=== PATIENT | male | born 1950 | race Caucasian/White ===

== ENCOUNTER 2019-03-23 15:29 | Outpatient (CLI) | payer MEDICARE, SELFPAY ==
--- NOTE | 2019-03-23 16:00 | MR_ITS ---
WS: [id number] MRI RIGHT SHOULDER NONCONTRAST TECHNIQUE: Sagittal T2, coronal T1, T2 and proton density imaging. Axial gradient PDE imaging. CLINICAL INFORMATION: pain COMPARISON: MRI 6 FINDINGS: Moderate degenerative arthritis at the AC joint with mild downsloping of the acromion. Edema involvin g the AC joint. Partial insertional tear at the distal supraspinatus. No tendon retraction. Infraspin atus is intact. Normal teres minor. Tiny intrasubstance tear involving the subscapularis distally. Medial subluxation of the biceps tendo n in the bicipital groove. Diffuse edema involving the rotator interval with tendinopathy involving t he long head of the biceps tendon. Intra-articular biceps tendon appears intact. Slight irregularity with small SLAP tear extending to the biceps labral anchor which appears intact. MR/MR shoulder RT wo con* [id number] IMPRESSION: 1. Small partial intrasubstance tear involving the distal supraspinatus extend ing to the insertion. No tendon retraction. This is similar in appearance to 20 10. 2. Normal infraspinatus and teres minor. 3. Tiny intrasubstance tear involving the subscapularis distally. Subcoracoid bursa effusion. 4. Medial subluxation of the biceps tendon in the bicipital groove with T2 sig nal abnormality in the rotator interval. Tendinopathy involving the intra-artic ular portion of the biceps tendon which appears intact. 5. Suggestion of a small SLAP tear anterior superior glenoid labrum extending to the biceps labral anchor which appears intact.
== END 2019-03-23 15:30 | disposition home or self-care (01) ==
LOC: RADSHAW 15:30
PROVIDERS: Family Provider Nurse Practitioner Family; PCP Nurse Practitioner Family; Visit Provider Nurse Practitioner Family
DX: S43.081A Other subluxation of right shoulder joint, initial encounter (principal); M75.111 Incomplete rotator cuff tear or rupture of right shoulder, not specified as traumatic; M25.511 Pain in right shoulder; X58.XXXA Exposure to other specified factors, initial encounter
CPT/HCPCS: 73221

== ENCOUNTER → 2019-04-07 14:09 | Outpatient (BNVA) | payer MEDICARE, SELFPAY | PROVIDERS: Family Provider Nurse Practitioner Family; PCP Nurse Practitioner Family; Visit Provider Anesthesiology | DX: G89.29 Other chronic pain (principal); M47.812 Spondylosis without myelopathy or radiculopathy, cervical region; M50.30 Other cervical disc degeneration, unspecified cervical region; M47.816 Spondylosis without myelopathy or radiculopathy, lumbar region; M47.817 Spondylosis without myelopathy or radiculopathy, lumbosacral region; M51.36 Other intervertebral disc degeneration, lumbar region; M17.11 Unilateral primary osteoarthritis, right knee; M25.511 Pain in right shoulder; M25.512 Pain in left shoulder; F17.210 Nicotine dependence, cigarettes, uncomplicated; Z79.891 Long term (current) use of opiate analgesic | CPT/HCPCS: 99214 ==

== ENCOUNTER → 2019-04-14 10:05 | Outpatient (BNVA) | payer MEDICARE, SELFPAY | PROVIDERS: Family Provider Nurse Practitioner Family; Referring Provider Nurse Practitioner Family; Visit Provider Specialist | DX: M19.011 Primary osteoarthritis, right shoulder (principal); M25.411 Effusion, right shoulder | CPT/HCPCS: 73030 ==

== ENCOUNTER 2019-04-21 06:00 | Outpatient (RCR) | payer MEDICARE, SELFPAY | END 2019-05-08 23:59 | disposition home or self-care (01) | LOC: TPT 06:00 | PROVIDERS: Referring Provider Specialist; Visit Provider Specialist | DX: M19.011 Primary osteoarthritis, right shoulder (principal) | CPT/HCPCS: 97032; 97110; 97140; 97161; 97164; 97530 ==

== ENCOUNTER → 2019-06-03 10:15 | Outpatient (BNVA) | payer MEDICARE, SELFPAY | PROVIDERS: Visit Provider Nurse Practitioner | DX: Z76.89 Persons encountering health services in other specified circumstances (principal) | CPT/HCPCS: 99213 ==

== ENCOUNTER → 2019-07-05 08:33 | Outpatient (BNVA) | payer MEDICARE, SELFPAY | PROVIDERS: Visit Provider Nurse Practitioner Family | DX: I10 Essential (primary) hypertension (principal); E11.9 Type 2 diabetes mellitus without complications; Z79.4 Long term (current) use of insulin; M51.36 Other intervertebral disc degeneration, lumbar region; R53.83 Other fatigue; E55.9 Vitamin D deficiency, unspecified | CPT/HCPCS: 80053; 80061; 82044; 82306; 82607; 83036; 84443; 85025 ==

== ENCOUNTER → 2019-09-23 13:25 | Outpatient (BNVA) | payer MEDICARE, SELFPAY | PROVIDERS: Visit Provider Anesthesiology | DX: G89.29 Other chronic pain (principal); M47.816 Spondylosis without myelopathy or radiculopathy, lumbar region; M51.36 Other intervertebral disc degeneration, lumbar region; M47.817 Spondylosis without myelopathy or radiculopathy, lumbosacral region; M17.11 Unilateral primary osteoarthritis, right knee; M50.30 Other cervical disc degeneration, unspecified cervical region; M47.812 Spondylosis without myelopathy or radiculopathy, cervical region; F17.220 Nicotine dependence, chewing tobacco, uncomplicated; Z79.891 Long term (current) use of opiate analgesic; Z71.6 Tobacco abuse counseling | CPT/HCPCS: 99214 ==

== ENCOUNTER → 2019-12-01 10:19 | Outpatient (BNVA) | payer MEDICARE, SELFPAY | PROVIDERS: PCP Nurse Practitioner Family; Visit Provider Nurse Practitioner | DX: M47.816 Spondylosis without myelopathy or radiculopathy, lumbar region (principal); M51.36 Other intervertebral disc degeneration, lumbar region; M47.812 Spondylosis without myelopathy or radiculopathy, cervical region; M50.30 Other cervical disc degeneration, unspecified cervical region; M17.11 Unilateral primary osteoarthritis, right knee; F17.220 Nicotine dependence, chewing tobacco, uncomplicated; Z79.891 Long term (current) use of opiate analgesic; Z71.6 Tobacco abuse counseling | CPT/HCPCS: 99213; 99214 ==

== ENCOUNTER → 2019-12-08 10:22 | Outpatient (BNVA) | payer MEDICARE, SELFPAY | PROVIDERS: PCP Nurse Practitioner Family; Visit Provider Nurse Practitioner Family | DX: E53.8 Deficiency of other specified B group vitamins (principal); I10 Essential (primary) hypertension; E78.2 Mixed hyperlipidemia; R53.83 Other fatigue | CPT/HCPCS: 80053; 80061; 82306; 82607; 85025 ==

== ENCOUNTER → 2020-01-26 10:38 | Outpatient (BNVA) | payer MEDICARE, SELFPAY | PROVIDERS: PCP Nurse Practitioner Family; Visit Provider Anesthesiology | DX: G89.29 Other chronic pain (principal); M47.816 Spondylosis without myelopathy or radiculopathy, lumbar region; M51.36 Other intervertebral disc degeneration, lumbar region; M47.817 Spondylosis without myelopathy or radiculopathy, lumbosacral region; M50.30 Other cervical disc degeneration, unspecified cervical region; M47.812 Spondylosis without myelopathy or radiculopathy, cervical region; F17.220 Nicotine dependence, chewing tobacco, uncomplicated; Z79.891 Long term (current) use of opiate analgesic; Z71.6 Tobacco abuse counseling | CPT/HCPCS: 99214 ==

== ENCOUNTER → 2020-01-27 09:32 | Outpatient (BNVA) | payer MEDICARE, SELFPAY | PROVIDERS: PCP Nurse Practitioner Family; Visit Provider Family Medicine | DX: S46.211A Strain of muscle, fascia and tendon of other parts of biceps, right arm, initial encounter (principal); X58.XXXA Exposure to other specified factors, initial encounter; M25.511 Pain in right shoulder | CPT/HCPCS: 73030 ==

== ENCOUNTER → 2020-03-08 10:30 | Outpatient (BNVA) | payer MEDICARE, SELFPAY | PROVIDERS: PCP Nurse Practitioner Family; Visit Provider Nurse Practitioner Family | DX: R53.83 Other fatigue (principal); E53.8 Deficiency of other specified B group vitamins; I10 Essential (primary) hypertension; E78.2 Mixed hyperlipidemia; E11.9 Type 2 diabetes mellitus without complications; Z79.899 Other long term (current) drug therapy; Z20.828 Contact with and (suspected) exposure to other viral communicable diseases | CPT/HCPCS: 80053; 82306; 82607; 84443; 85025; 87635 ==

== ENCOUNTER → 2020-03-22 09:15 | Outpatient (BNVA) | payer MEDICARE, SELFPAY | PROVIDERS: PCP Nurse Practitioner Family; Visit Provider Anesthesiology | DX: G89.29 Other chronic pain (principal); M47.816 Spondylosis without myelopathy or radiculopathy, lumbar region; M51.36 Other intervertebral disc degeneration, lumbar region; M47.817 Spondylosis without myelopathy or radiculopathy, lumbosacral region; M50.30 Other cervical disc degeneration, unspecified cervical region; M25.511 Pain in right shoulder; M25.561 Pain in right knee; E11.9 Type 2 diabetes mellitus without complications; F17.220 Nicotine dependence, chewing tobacco, uncomplicated; Z79.4 Long term (current) use of insulin; Z79.891 Long term (current) use of opiate analgesic | CPT/HCPCS: 99214 ==

== ENCOUNTER → 2020-05-23 13:18 | Outpatient (BNVA) | payer MEDICARE, SELFPAY | PROVIDERS: PCP Nurse Practitioner Family; Visit Provider Anesthesiology | DX: G89.29 Other chronic pain (principal); M47.816 Spondylosis without myelopathy or radiculopathy, lumbar region; M51.36 Other intervertebral disc degeneration, lumbar region; M47.817 Spondylosis without myelopathy or radiculopathy, lumbosacral region; M50.30 Other cervical disc degeneration, unspecified cervical region; M47.812 Spondylosis without myelopathy or radiculopathy, cervical region; M25.511 Pain in right shoulder; M25.512 Pain in left shoulder; M17.11 Unilateral primary osteoarthritis, right knee; F17.200 Nicotine dependence, unspecified, uncomplicated; Z79.891 Long term (current) use of opiate analgesic | CPT/HCPCS: 99214 ==

== ENCOUNTER → 2020-06-12 11:42 | Outpatient (BNVA) | payer MEDICARE, SELFPAY | PROVIDERS: PCP Nurse Practitioner Family; Visit Provider Nurse Practitioner Family | DX: E11.9 Type 2 diabetes mellitus without complications (principal); E53.8 Deficiency of other specified B group vitamins; E55.9 Vitamin D deficiency, unspecified; E78.2 Mixed hyperlipidemia; N20.0 Calculus of kidney; I10 Essential (primary) hypertension; F41.9 Anxiety disorder, unspecified; F32.9 Major depressive disorder, single episode, unspecified; R41.3 Other amnesia; Z79.4 Long term (current) use of insulin; Z00.00 Encounter for general adult medical examination without abnormal findings | CPT/HCPCS: 80053; 80061; 82306; 82607; 83036; 84443; 85025; G0103 ==

== ENCOUNTER → 2020-06-28 12:47 | Outpatient (BNVA) | payer MEDICARE, SELFPAY | PROVIDERS: PCP Nurse Practitioner Family; Visit Provider Nurse Practitioner | DX: G89.29 Other chronic pain (principal); M47.812 Spondylosis without myelopathy or radiculopathy, cervical region; M50.30 Other cervical disc degeneration, unspecified cervical region; M47.816 Spondylosis without myelopathy or radiculopathy, lumbar region; M47.817 Spondylosis without myelopathy or radiculopathy, lumbosacral region; M51.36 Other intervertebral disc degeneration, lumbar region; M17.11 Unilateral primary osteoarthritis, right knee; M25.511 Pain in right shoulder; M25.512 Pain in left shoulder; F17.220 Nicotine dependence, chewing tobacco, uncomplicated; Z79.891 Long term (current) use of opiate analgesic | CPT/HCPCS: 99213; 99214 ==

== ENCOUNTER → 2020-08-23 13:39 | Outpatient (BNVA) | payer MEDICARE, SELFPAY | PROVIDERS: PCP Nurse Practitioner Family; Visit Provider Nurse Practitioner | DX: M47.816 Spondylosis without myelopathy or radiculopathy, lumbar region (principal); M47.812 Spondylosis without myelopathy or radiculopathy, cervical region; M47.817 Spondylosis without myelopathy or radiculopathy, lumbosacral region; M17.11 Unilateral primary osteoarthritis, right knee; M50.30 Other cervical disc degeneration, unspecified cervical region; M51.36 Other intervertebral disc degeneration, lumbar region; F17.220 Nicotine dependence, chewing tobacco, uncomplicated; Z79.891 Long term (current) use of opiate analgesic; Z71.6 Tobacco abuse counseling | CPT/HCPCS: 99213; 99214 ==

== ENCOUNTER → 2020-10-27 12:29 | Outpatient (BNVA) | payer MEDICARE, SELFPAY | PROVIDERS: PCP Nurse Practitioner Family; Visit Provider Nurse Practitioner | DX: G89.29 Other chronic pain (principal); M47.816 Spondylosis without myelopathy or radiculopathy, lumbar region; M47.817 Spondylosis without myelopathy or radiculopathy, lumbosacral region; M51.36 Other intervertebral disc degeneration, lumbar region; M17.11 Unilateral primary osteoarthritis, right knee; M25.511 Pain in right shoulder; M50.30 Other cervical disc degeneration, unspecified cervical region; M47.812 Spondylosis without myelopathy or radiculopathy, cervical region; M25.512 Pain in left shoulder; F17.210 Nicotine dependence, cigarettes, uncomplicated; Z79.891 Long term (current) use of opiate analgesic; Z71.6 Tobacco abuse counseling | CPT/HCPCS: 99214 ==

== ENCOUNTER → 2020-12-04 11:36 | Outpatient (BNVA) | payer MEDICARE, SELFPAY | PROVIDERS: PCP Nurse Practitioner Family; Visit Provider Nurse Practitioner Family | DX: E55.9 Vitamin D deficiency, unspecified (principal); E11.9 Type 2 diabetes mellitus without complications; R41.3 Other amnesia; Z79.4 Long term (current) use of insulin; Z79.899 Other long term (current) drug therapy | CPT/HCPCS: 80053; 80061; 81000; 82043; 82306; 82607; 83036; 84439; 84443; 84481; 85025 ==

== ENCOUNTER → 2020-12-27 12:41 | Outpatient (BNVA) | payer MEDICARE, SELFPAY | PROVIDERS: PCP Nurse Practitioner Family; Visit Provider Anesthesiology | DX: G89.29 Other chronic pain (principal); M47.816 Spondylosis without myelopathy or radiculopathy, lumbar region; M51.36 Other intervertebral disc degeneration, lumbar region; M47.817 Spondylosis without myelopathy or radiculopathy, lumbosacral region; M50.30 Other cervical disc degeneration, unspecified cervical region; M47.812 Spondylosis without myelopathy or radiculopathy, cervical region; Z87.891 Personal history of nicotine dependence; Z79.891 Long term (current) use of opiate analgesic | CPT/HCPCS: 99214 ==

== ENCOUNTER 2021-01-15 14:15 | Outpatient (CLI) | payer MEDICARE, SELFPAY ==
--- NOTE | 2021-01-15 14:15 | USCV_ITS ---
Anthony Sesay Age: 70 Gender: M : 1950 Exam Date: 01/15/2021 14:27 Ordering Phys: Katy Barry VICE PRESIDENT RISK MANAGEMENT Technologist: Winnie Hamilton Exam Location: [facility] [place] Indication: DIZZINESS Risk Factors: Previous Vascular Surgery: Right Brachial BP: / Left Brachial BP: / Right Left Velocity (cm/s) Spectral Plaque Velocity (cm/s) Spectral Plaque Syst/Diast Broadening Syst/Diast Broadening 88.00/ 10.30 Prox CCA 77.80 / 14.50 64.10/ 16.20 Mid CCA 66.70 / 14.55 62.40/ 16.20 Distal CCA 65.80 / 12.80 51.30/ 11.70 Prox ICA 41.90 / 10.30 66.80/ 17.10 Mid ICA 50.40 / 15.30 64.10/ 24.20 Distal ICA 63.40 / 23.70 79.50 ECA 58.90 0.76 ICA/CCA 0.82 Antegrade Vertebral Antegrade 37.50/ 13.80 cm/s 28.20/ 12.80 cm/s Tri Subclavian Tri 109.1 89.40 0 FINDINGS Comparison: none available. No significant elevation of systolic or diastolic velocities. Waveforms are normal. Minimal bilateral plaque. Antegrade vertebral arteries. CONCLUSIONS Bilateral ICA stenosis less than 50%. Mild carotid atherosclerosis. Dr. Maria E Boyle DO (Electronically Signed) Final Date: 15 January 2021 15:05 S
== END 2021-01-15 14:16 | disposition home or self-care (01) ==
LOC: US 14:19
PROVIDERS: PCP Nurse Practitioner Family; Visit Provider Nurse Practitioner Family
DX: R42 Dizziness and giddiness (principal); I65.23 Occlusion and stenosis of bilateral carotid arteries
CPT/HCPCS: 93880

== ENCOUNTER → 2021-01-29 13:12 | Outpatient (BNVA) | payer MEDICARE, SELFPAY | PROVIDERS: PCP Nurse Practitioner Family; Visit Provider Nurse Practitioner Family | DX: Z20.822 Contact with and (suspected) exposure to COVID-19 (principal) | CPT/HCPCS: 87635 ==

== ENCOUNTER 2021-02-09 20:37 | Emergency (ER) | payer MEDICARE, SELFPAY ==
[2021-02-09] VITALS (23 sets, daily range): BP systolic 135–137; BP diastolic 81–89; PULSE 78–85; RESP 13–24; TEMP 36.6; O2SAT 92–96; BMI 35.4
--- NOTE | 2021-02-09 20:25 | XRR_ITS ---
PROCEDURE INFORMATION: Exam: XR Chest Exam date and time: 02/09/2021 8:25 PM Age: 70 years old Clinical indication: Pain; Other: Epigastric; Additional info: Epigastric pain TECHNIQUE: Imaging protocol: XR of the chest. Views: 1 view. COMPARISON: CR Chest 2 views* [id number] 12/22/2018 9:43 AM FINDINGS: Lungs: Unremarkable. No consolidation. Pleural spaces: Unremarkable. No pleural effusion. No pneumothorax. Heart/Mediastinum: Unremarkable. No cardiomegaly. Bones/joints: Stable postoperative metallic fixation of the cervical spine with or without metallic artifact. XR/XR chest 1V portable [id number] IMPRESSION: No acute findings. Radiation Dose CTDIVOL = (mGy): DLP = (mGy-cm)
--- NOTE | 2021-02-09 20:26 | ECG_ITS ---
[facility] Test Date: 2021-02-09 Pat Name: Anthony Sesay Department: Room: Gender: Male Poiser: : 1950 Requested By: Raul Curtis Order Number: [id number] Edi MD: Sameer Ardon M.D. Measurements Intervals [place] Rate: 78 P: 12 OK: 158 QRS: -78 QRSD: 165 T: 53 QT: 412 QTc: 470 Interpretive Statements SINUS RHYTHM WITH OCCASIONAL VENTRICULAR PREMATURE COMPLEXES RIGHT BUNDLE BRANCH BLOCK [120+ ms QRS DURATION, UPRIGHT V1, 40+ ms S IN I/aVL/V4/V5/V6] LEFT ANTERIOR FASCICULAR BLOCK [QRS AXIS <= -45, QR IN I, RS IN II] POSSIBLE SEPTAL MYOCARDIAL INFARCTION , PROBABLY OLD [30 ms Q WAVE IN V1/V2] Compared to ECG 09/23/2015 18:03:59 Ventricular premature complex(es) now present Left anterior fascicular block now present Myocardial infarct finding now present Left-axis deviation no longer present Electronically Signed On 02-11-2021 13:18:49 POWER PRESS TENDER by Sameer Ardon M.D. [id number]
[2021-02-09 20:32] LABS: Basophils % 0.1 %; Eosinophils # 0.5 10^3/uL (0.0-0.8); Eosinophils % 3.8 %; Hematocrit 41.9 % (42.0-52.0); Hemoglobin 13.4 g/dL (11.7-16.6); Lymphocytes # 2.6 10^3/uL (0.8-4.8); Lymphocytes % 18.9 %; Mean Corpuscular Hemoglobin 30.6 pg (28.0-34.0); Mean Corpuscular Volume 95.7 fl (80-94); Mean Platelet Volume 9.5 fL (7.4-10.4); Monocytes % 7.4 %; Neutrophils # 9.28 10^3/uL (1.8-7.7); Neutrophils % 68.4 %; Nucleated Red Blood Cells % 0 %; Platelet Count 227 10^3/cmm (130-400); Red Blood Count 4.38 10^6/uL (4.1-5.3); Red Cell Distribution Width 14.2 % (12.1-15.1); White Blood Count 13.6 10^3/uL (4.0-10.0)
--- NOTE | 2021-02-09 20:39 | CTR_ITS ---
PROCEDURE INFORMATION: Exam: CT Abdomen And Pelvis With Contrast Exam date and time: 02/09/2021 8:39 PM Age: 70 years old Clinical indication: Abdominal pain; Prior surgery; Surgery type: History of ureteral stents. ; Patient HX: C/O epigastric pain. Chronic history of nephrolithiasis. TECHNIQUE: Imaging protocol: Computed tomography of the abdomen and pelvis with contrast. Radiation optimization: All CT scans at this facility use at least one of these dose optimization techniques: automated exposure control; mA and/or kV adjustment per patient size (includes targeted exams where dose is matched to clinical indication); or iterative reconstruction. Contrast material: VISI 320; Contrast volume: 95 ml; Contrast route: INTRAVENOUS (IV); COMPARISON: CT Abdomen/Pelvis Renal [id number] 07/22/2017 4:41 PM RADIATION DOSE METRICS: Total DLP (mGy-cm): 1794.32 FINDINGS: Heart: Severe calcified coronary artery disease. Liver: Normal. No mass. Gallbladder and bile ducts: Normal. No calcified stones. No ductal dilation. Pancreas: Normal. No ductal dilation. Spleen: Normal. No splenomegaly. Adrenal glands: Normal. No mass. Kidneys and ureters: Right renal simple cyst measuring >1.0 cm . One or more nonobstructing left renal calyceal stones. Stomach and bowel: Moderate sigmoid colon diverticulosis. Appendix: No evidence of appendicitis. Intraperitoneal space: Unremarkable. No free air. No significant fluid collection. Vasculature: Calcification of the abdominal aorta and/or iliac arteries consistent with atherosclerotic vessel disease. Separate origins of the splenic artery and hepatic artery with no celiac axis. Normal variant. Lymph nodes: Unremarkable. No enlarged lymph nodes. Urinary bladder: Unremarkable as visualized. Reproductive: Unremarkable as visualized. Bones/joints: Mild dextroscoliosis. Soft tissues: Unremarkable. CT/CT abdomen pelvis w con* [id number] IMPRESSION: 1. Severe calcified coronary artery disease. 2. One or more nonobstructing left renal calyceal stones. COMMENTS: Consistent with the [employer]'s Incidental Findings Committee white paper (J Am Beatrice Radiol 2018): Any incidental renal lesion less than 1 cm or classified as too small to characterize, or any incidental cystic renal lesion characterized as simple-appearing, is likely benign. No follow-up imaging is recommended for these lesions per consensus recommendations based on imaging criteria. Radiation Dose CTDIVOL = (mGy): DLP = 1794.32 (mGy-cm)
[2021-02-09 20:53] LABS: Troponin(5th) Baseline 22 ng/L (0-15)
[2021-02-09 21:02] LABS: Add Urine Microscopic? NO; Charge for UA Resulting for Rev
[2021-02-09 21:03] LABS: Alanine Aminotransferase 9 U/L (0-41); Albumin Level 4.4 g/dL (3.5-5.2); Alkaline Phosphatase 37 IU/L (40-130); Anion Gap 17.5 (5-19); Aspartate Amino Transferase 8 U/L (0-40); Blood Urea Nitrogen 29 mg/dL (8-23); Calcium 8.9 mg/dL (8.5-10.5); Carbon Dioxide 21 mmol/L (22-29); Chloride 107 mmol/L (98-107); Globulin 2.1 g/dL (1.3-4.6); Glucose 116 mg/dL (65-115); Lipase 16 U/L (13-60); NT Pro B Type Natriuretic Pept 130 pg/mL (0-125); Osmolality Calculated 299 mOsm/kg (285-295); Potassium 4.5 mmol/L (3.5-5.1); Sodium 141 mmol/L (136-145); Total Bilirubin 0.2 mg/dL (0.15-1.2); Total Protein 6.5 g/dL (6.6-8.7)
[2021-02-09 21:03] LABS: Bilirubin Urine Neg (Negative); Blood Urine Neg (Negative); Glucose Urine UA Norm (Normal); Ketones Urine Negative (Negative); Leukocyte Esterase Urine Negative (Negative); Nitrate Urine Negative (Negative); Protein Urine Neg (Negative); Urine Appearance Clear (CLEAR); Urine Color Yellow (Yellow); Urobilinogen Urine Norm (Negative); pH Urine 5 (5-7)
[2021-02-09] MEDS: ondansetron 2 mg/ML SDV 2 mL 4 MG IVP (21:22)
[2021-02-09] MEDS: morphine 4 mg/mL SDV 1 mL IVP (21:24)
--- NOTE | 2021-02-09 22:24 | W.ED.ABDPA2 ---
HPI - Abdominal Pain General: Chief Complaint: Abdominal Pain Stated Complaint: abdomen pain History of Present Illness: HPI narrative: 70-year-old male complains of chest and epigastric pain for the last several days. He saw his PCP today, and was asked to come to the emergency room for evaluation. He has not been vomiting, he has been slightly nauseated. He has been more short of breath than normal. Originally, he said he had chest discomfort, but then seemed to believe it was more epigastric discomfort. He does have a history of coronary disease, but no history of intervention. He had taken nitroglycerin at home with relief previously, but has not had relief with nitroglycerin today. MD elicited complaint: abdominal pain Pertinent past history: other Onset (ago): day(s) Pain Consistency: constant Location: Chest and Epigastric Severity: moderate Quality: aching Radiation: none Exacerbating factors: nothing Relieving factors: nothing Associated Symptoms: Reports bloating, dyspepsia and nausea; Denies fever(s) and vomiting Review of Systems Const: Denies: fever(s) Card: Reports: chest pain; Denies: palpitations Resp: Reports: dyspnea; Denies: productive cough or non-productive cough GI: Reports: nausea and bloating; Denies: vomiting PFSH ED PFSH: Medical History Anxiety and depression At risk for falls Atherosclerosis of [place] coronary artery of [place] heart with angina pectoris Bilateral shoulder pain Cervical spine pain Cervical spondylosis without myelopathy Chronic pain Chronic pain of right knee DDD (degenerative disc disease), lumbar Degenerative disc disease, cervical Diverticulosis of colon Encounter for long-term use of opiate analgesic Encounter for long-term use of opiate analgesic Essential hypertension with goal blood pressure less than 130/80 Facet syndrome, lumbar History of kidney stones HNP (herniated nucleus pulposus), cervical Lumbosacral spondylosis without myelopathy Memory impairment of gradual onset Mixed hyperlipidemia Osteoarthritis of right knee Restless legs syndrome with nocturnal myoclonus Sleep apnea Spondylosis without myelopathy or radiculopathy, lumbar region Tobacco use disorder Type 2 diabetes mellitus without complication, with long-term current use of insulin Urinary retention Vitamin B12 deficiency Vitamin B12 deficiency (dietary) anemia Surgical History H/O local excision of skin lesion Excision of skin cancer left side of face Hx of lithotripsy right mid urethral stone 07/26/2013 S/P left rotator cuff repair S/P spinal surgery CERVICAL SPINE S/P ureteral stent placement 2013 Family History Mother CAD (coronary artery disease) Brother CAD (coronary artery disease) Other Cancer Diabetes Hypertension Stroke Social History Smoking and tobacco status: current every day smoker smokeless tobacco Smokeless tobacco details: QUIT CIGARETTES - 1 CAN PER DAY Second hand smoke exposure: No Alcohol intake: never Lives independently: Yes Household members: children Marital status: / Current occupational status: retired History of recent travel: No Current gender identity: Male Special wei needs: No Agree to transfusion: Yes Physical Exam Const: GENERAL APPEARANCE: cooperative and frail appearing ORIENTATION/CONSCIOUSNESS: Yes awake, Yes oriented to person, Yes oriented to place and Yes oriented to time HENMT: COMMON NORMALS: normocephalic HEAD & SCALP: normocephalic Chest: COMMONS NORMALS: normal inspection of the chest CHEST: No tenderness Resp: COMMON NORMALS: clear to auscultation bilaterally EFFORT & INSPECTION: Yes tachypneic AUSCULTATION: clear to auscultation bilaterally Cardio: COMMON NORMALS: regular rate and regular rhythm RATE: regular rate RHYTHM: regular rhythm GI: INSPECTION: Yes abdominal distension AUSCULTATION: Yes normoactive bowel sounds PALPATION: Yes Tenderness to palpation present (GI) (diffuse) Neuro: SENSORIUM/ORIENTATION: Yes oriented to person, Yes oriented to place and Yes oriented to time Course Vital Signs: Vital signs: Vital Signs Temperature 98 F 02/09/21 20:11 Pulse Rate 80 02/10/21 00:19 Respiratory Rate 16 02/10/21 00:19 Blood Pressure 129/81 02/10/21 00:19 Pulse Oximetry 93 02/10/21 00:19 MDM - Abdominal Pain MDM Narrative: Medical decision making narrative: White blood cell count is 13.6. BUN and creatinine are 29 and 1.3. His first troponin is elevated, second troponin is essentially stable, delta 2.6. CT shows severe coronary atherosclerosis. There are no acute findings abdominally. Chest x-ray is negative. His symptoms are resolved at this point. He would like to go home. I cautioned him that return if pain should equal return to the emergency department. An outpatient stress test will be set up for the patient. Case management will be contacted. Lab Data: Labs: Lab Results 02/09/21 02/09/21 02/09/21 20:24 20:24 20:24 WBC 13.6 10^3/uL H 10 ^3/uL (4.0-10.0) RBC 4.38 10^6/uL 10^6 /uL (4.1-5.3) Hgb 13.4 g/dL g/dL (11.7-16.6) Hct 41.9 % L % (42.0-52.0) MCV 95.7 fl H fl (80-94) MCH 30.6 pg pg (28.0-34.0) MCHC 32.0 g/dL g/dL (30.0-36.0) RDW 14.2 % % (12.1-15.1) Plt Count 227 10^3/cmm 10^3 /cmm (130-400) MPV 9.5 fL fL (7.4-10.4) Neut % (Auto) 68.4 % % Lymph % (Auto) 18.9 % % Millard % (Auto) 7.4 % % Eos % (Auto) 3.8 % % Baso % (Auto) 0.1 % % Neut # (Auto) 9.28 10^3/uL H 10 ^3/uL (1.8-7.7) Lymph # (Auto) 2.6 10^3/uL 10^3/ uL (0.8-4.8) Millard # (Auto) 1.0 10^3/uL H 10^ 3/uL (0.2-0.9) Eos # (Auto) 0.5 10^3/uL 10^3/ uL (0.0-0.8) Baso # (Auto) 0.0 10^3/uL 10^3/ uL (0.0-0.1) Nucleated RBC % (a uto) 0 % % Nucleated RBCs # 0.0 /100WBC /100W BC Sodium 141 mmol/L mmol/L (136-145) Potassium 4.5 mmol/L mmol/L (3.5-5.1) Chloride 107 mmol/L mmol/L (98-107) Carbon Dioxide 21 mmol/L L mmol/ L (22-29) Anion Gap 17.5 (5-19) BUN 29 mg/dL H mg/dL (8-23) Creatinine 1.3 mg/dL H mg/dL (0.7-1.2) GFR Calculation Not Reportable Glucose 116 mg/dL H mg/dL (65-115) Calculated Osmolal ity 299 mOsm/kg H mOs m/kg (285-295) Calcium 8.9 mg/dL mg/dL (8.5-10.5) Total Bilirubin 0.2 mg/dL mg/dL (0.15-1.2) AST 8 U/L U/L (0-40) ALT 9 U/L U/L (0-41) Alkaline Phosphata se 37 IU/L L IU/L (40-130) Troponin T Baselin e 22 ng/L H ng/L (0-15) Troponin T 120 Min [place] Troponin T NT-Pro-B Natriuret Pep 130 pg/mL H pg/mL (0-125) Total Protein 6.5 g/dL L g/dL (6.6-8.7) Albumin 4.4 g/dL g/dL (3.5-5.2) Globulin 2.1 g/dL g/dL (1.3-4.6) Lipase 16 U/L U/L (13-60) Urine Color Urine Appearance Urine pH Ur Specific Gravit y Urine Protein Urine Glucose (UA) Urine Ketones Urine Blood Urine Nitrate Urine Bilirubin Urine Urobilinogen Ur Leukocyte Darlene ase 02/09/21 02/09/21 20:51 22:20 WBC RBC Hgb Hct MCV MCH MCHC RDW Plt Count MPV Neut % (Auto) Lymph % (Auto) Millard % (Auto) Eos % (Auto) Baso % (Auto) Neut # (Auto) Lymph # (Auto) Millard # (Auto) Eos # (Auto) Baso # (Auto) Nucleated RBC % (a uto) Nucleated RBCs # Sodium Potassium Chloride Carbon Dioxide Anion Gap BUN Creatinine GFR Calculation Glucose Calculated Osmolal ity Calcium Total Bilirubin AST ALT Alkaline Phosphata se Troponin T Baselin e Troponin T 120 Min [place] 24.67 ng/L H ng/L (0-15) Delta Troponin T 2.67 ABS# ABS# (0-10) NT-Pro-B Natriuret Pep Total Protein Albumin Globulin Lipase Urine Color Yellow (Yellow) Urine Appearance Clear (CLEAR) Urine pH 5 (5-7) Ur Specific Gravit y 1.020 (1.005-1.030) Urine Protein Neg (Negative) Urine Glucose (UA) Norm (Normal) Urine Ketones Negative (Negative) Urine Blood Neg (Negative) Urine Nitrate Negative (Negative) Urine Bilirubin Neg (Negative) Urine Urobilinogen Norm mg/dL mg/dL (Negative) Ur Leukocyte Darlene ase Negative (Negative) Discharge Plan Discharge Patient Disposition: Home Clinical Impression: Chest pain, Abdominal pain Condition: Stable Prescriptions: No Action aspirin [Aspirin Low Dose] 81 mg tablet,delayed release (DR/EC) 81 mg PO ONCE RF: 0 (DME) blood-glucose meter [Blood Glucose Monitoring] Kit See Rx Instructions .ROUTE .MEDSUPPLY Qty: 1 RF: 0 (DME) blood sugar diagnostic [Blood Glucose Test] Strip See Rx Instructions .ROUTE .MEDSUPPLY Qty: 25 RF: 11 oxycodone 15 mg tablet 15 mg PO TID PRN (Reason: pain) 30 Days Qty: 90 RF: 0 oxycodone 15 mg tablet 15 mg PO TID PRN (Reason: pain) 30 Days Qty: 90 RF: 0 polyethylene glycol 3350 [Miralax] 17 gram/dose powder 17 g PO DAILY PRN (Reason: constipation) Qty: 510 RF: 5 ergocalciferol (vitamin D2) 1,250 mcg (50,000 unit) capsule See Rx Instructions .ROUTE .COMPLEX Qty: 12 RF: 1 memantine 10 mg tablet See Rx Instructions .ROUTE .COMPLEX Qty: 60 RF: 5 levothyroxine 25 mcg tablet 25 mcg PO DAILY Qty: 90 RF: 0 metformin 500 mg tablet See Rx Instructions .ROUTE .COMPLEX Qty: 60 RF: 2 cyanocobalamin (vitamin B-12) 1,000 mcg/mL solution 1,000 mcg IM .monthly 30 Days Qty: 1 RF: 11 nitroglycerin 0.4 mg tablet, sublingual See Rx Instructions .ROUTE .COMPLEX Qty: 25 RF: 3 isosorbide mononitrate 60 mg tablet extended release 24 hr See Rx Instructions .ROUTE .COMPLEX Qty: 30 RF: 11 pravastatin 40 mg tablet See Rx Instructions .ROUTE .COMPLEX Qty: 30 RF: 11 tamsulosin 0.4 mg capsule See Rx Instructions .ROUTE .COMPLEX Qty: 60 RF: 11 fluoxetine 40 mg capsule See Rx Instructions .ROUTE .COMPLEX Qty: 30 RF: 11 fenofibrate nanocrystallized 145 mg tablet See Rx Instructions .ROUTE .COMPLEX Qty: 30 RF: 11 cyclobenzaprine 10 mg tablet See Rx Instructions .ROUTE .COMPLEX Qty: 120 RF: 5 Discharge Orders: Discharge ED (Routine); Ordered 02/10/21 Ordered By: Raul Madera Referrals: Katy Barry FNP [Primary Care Provider] - 1-3 days Patient Instructions: Abdominal Pain (ED), Opioid Safety Activity Restrictions/Additional Instructions: Return to the emergency room for return of chest or epigastric discomfort, vomiting, shortness of breath, fever, any other concerns. An outpatient stress test order has been placed for you. You should get a call from case management at the beginning of the week to set this up. Coding Level of Care Code ED Artificial Glass Eye Maker for Bentley Fwd Exam Detailed
[2021-02-09] MEDS: iodixanol 320 mg/mL 100mL Btl IV (22:47)
[2021-02-09 22:50] LABS: Troponin 5 2HR 24.67 ng/L (0-15); Troponin 5 2HR Delta 2.67 ABS# (0-10)
[2021-02-10 00:19] VITALS: BP 129/81; PULSE 80; RESP 16; O2SAT 93
[2021-02-10 01:07] VITALS: BP 129/81; PULSE 76; O2SAT 94
--- NOTE | 2021-02-12 11:10 | DCPLANNER ---
manager integrity had message to schedule an outpatient stress test for patient. manager integrity faxed signed order to centralized scheduling, who will call patient with appointment information.
--- NOTE | 2021-03-08 07:33 | DCPLANNER ---
Patient had a stress test scheduled for 03.07.21 - patient did attend.
== END 2021-02-10 01:09 | disposition home or self-care (01) ==
PROVIDERS: Emergency Provider Emergency Medicine; PCP Nurse Practitioner Family
DX: R10.9 Unspecified abdominal pain (principal); R07.9 Chest pain, unspecified; Z79.82 Long term (current) use of aspirin; Z79.84 Long term (current) use of oral hypoglycemic drugs; I25.10 Atherosclerotic heart disease of native coronary artery without angina pectoris; E78.2 Mixed hyperlipidemia; E11.9 Type 2 diabetes mellitus without complications; F17.220 Nicotine dependence, chewing tobacco, uncomplicated
CPT/HCPCS: 71045; 74177; 80053; 81003; 83690; 83880; 84484; 85025; 93005; 96374; 96375; 99284; J2270; J2405; Q9967

== ENCOUNTER → 2021-02-12 17:04 | Outpatient (BNVA) | payer MEDICARE, SELFPAY | PROVIDERS: PCP Nurse Practitioner Family; Visit Provider Nurse Practitioner Family | DX: R19.7 Diarrhea, unspecified (principal) | CPT/HCPCS: 36416; 80053; 82962; 85025 ==

== ENCOUNTER → 2021-02-13 12:03 | Outpatient (BNVA) | payer MEDICARE, SELFPAY | PROVIDERS: PCP Nurse Practitioner Family; Visit Provider Nurse Practitioner Family | DX: R19.7 Diarrhea, unspecified (principal) | CPT/HCPCS: 83630; 87338; 87493; 87506 ==

== ENCOUNTER 2021-03-07 10:30 | Outpatient (CLI) | payer MEDICARE, SELFPAY ==
[2021-03-07 10:43] VITALS: BMI 35.2
--- NOTE | 2021-03-07 10:49 | NMCV_ITS ---
NM amando perf SPECT r/s* [id number] Anthony Sesay Age: 70 Gender: M : 1950 Exam Date: 03/07/2021 10:49 Ordering Phys: Raul Madera DO Technologist: MATT Dunlap Exam Location: [facility] Indications: CHEST PAIN STRESS TEST Please see separate stress test report in [facility] for full findings IMAGE PROTOCOL Rest/Stress 1 Lexiscan Day Radiopharmaceutical Dose (mCi) Administration Site Administered by Rest: Tc-99m 11.0 IV MATT Flores Sestamibi Stress:Tc-99m 32.8 IV MATT Flores Sestamibi Rest: 07-Mar-2021 60 Discovery 630 Stress: 07-Mar-2021 30 Discovery 630 0.4mg Lexiscan. Supine position only as patient was unable to lay prone. SPECT RESULTS Technical Quality: Excellent Raw Data Analysis: Normal Image Corrections: No attenuation or motion correction applied Summed Stress Score: 6 Summed Rest Score: 14 Summed Difference Score: 0 PERFUSION FINDINGS Moderate area of moderately decreased tracer uptake in the mid and apical inferior, mid inferolateral and LV apex. Subtle area of reversibility was noted in the apical inferior region FUNCTIONAL RESULTS (calculated via Gated SPECT) Stress Image LV EF (%): 42 Stress EDV (mL):126 TID: 1.38 Stress ESV (mL):73 FUNCTIONAL FINDINGS: Segmental wall motion analysis revealing diffuse hypokinesia of the septum and the LV apex IMPRESSIONS 1. Myocardial perfusion imaging revealing moderate area persistent decreased activity in the inferior, inferolateral and apical regions suggestive of myocardial scarring in the distribution of the left circumflex artery/right coronary artery with a subtle area of ischemia. 2. Diminished ejection fraction 42%. 3. LV wall motion abnormalities as mentioned above. 4. Mildly dilated LV cavity. 5. Elevated transient ischemic dilatation ratio, may suggest endocardial ischemia. Clinical correlation is recommended Compared to the study from 04/03/2018, the left ventricular ejection fraction has decreased and the transient ischemic dilatation ratio has increased. Dr Brooks Hamlin MD FACC (Electronically Signed) Final Date: 07 March 2021 18:41 S
--- NOTE | 2021-03-07 10:49 | ECG_ITS ---
[facility] Test Date: 2021-03-07 Pat Name: Anthony Sesay Department: Room: Gender: Male Advanced Quality Engineer: Lay Velez : 1950 Requested By: Raul Curtis Order Number: [id number] Edi MD: Brooks Hamlin M.D. Interpretive Statements NAME OF STUDY: LEXISCAN SESTAMIBI STRESS TEST INDICATION: Chest Pain; Chest Pain, PROCEDURE: At the baseline, the EKG revealed normal sinus rhythm with right bundle branch block and left anterior fascicular block. The baseline blood pressure was 146/102 mm Hg with a heart rate of 88 beats/min. 7 Lexiscan was infused over a period of 20 seconds. A total of 0.4 milligrams of Lexiscan was infused. The stress phase was continued for a total of 5 minutes. Heart rate at the end of the stress phase was 94 with a blood pressure 133/87. The EKG at the peak infusion revealed no significant changes. Occasional PVCs were noted. Sestamibi was injected 20 seconds after the Lexiscan infusion. Blood pressure at the end of the recovery phase was 132/89 with a heart rate of 93 per minute. CONCLUSION: 1. No significant EKG changes with the LexiScan infusion 2. No LexiScan induced chest pain or cardiac arrhythmia 3. Normal blood pressure and heart rate response 4. Sestamibi/sestamibi perfusion scan pending; see separate report. Electronically Signed On 03-09-2021 10:49:05 ELECTRICIAN HELPER POWERHOUSE by Brooks Hamlin M.D. [email or web address]
[2021-03-07] MEDS: regadenoson 0.4 Mg/5 ml Syringe IVP (12:12)
[2021-03-07 12:26] VITALS: BP 132/89; PULSE 90
== END 2021-03-07 10:31 | disposition home or self-care (01) ==
LOC: CDL 10:33
PROVIDERS: PCP Nurse Practitioner Family; Visit Provider Internal Medicine Cardiovascular Disease
DX: R07.9 Chest pain, unspecified (principal); R06.02 Shortness of breath
CPT/HCPCS: 78452; 93017; A9500; J2785

== ENCOUNTER → 2021-03-12 11:32 | Outpatient (BNVA) | payer MEDICARE, SELFPAY | PROVIDERS: PCP Nurse Practitioner Family; Visit Provider Specialist | DX: G30.9 Alzheimer's disease, unspecified (principal); F02.80 Dementia in other diseases classified elsewhere, unspecified severity, without behavioral disturbance, psychotic disturbance, mood disturbance, and anxiety; G47.33 Obstructive sleep apnea (adult) (pediatric); M54.9 Dorsalgia, unspecified; G89.29 Other chronic pain; Z79.891 Long term (current) use of opiate analgesic | CPT/HCPCS: 96116; 99205 ==

== ENCOUNTER → 2021-05-10 15:23 | Outpatient (BNVA) | payer MEDICARE, SELFPAY | PROVIDERS: PCP Nurse Practitioner Family; Visit Provider Internal Medicine Cardiovascular Disease | DX: R07.89 Other chest pain (principal); I25.119 Atherosclerotic heart disease of native coronary artery with unspecified angina pectoris; R06.00 Dyspnea, unspecified; R06.02 Shortness of breath | CPT/HCPCS: 99214 ==

== ENCOUNTER 2021-05-21 20:00 | Outpatient (CLI) | payer MEDICARE, MEDICAID, SELFPAY | END 2021-05-21 20:01 | disposition home or self-care (01) | PROVIDERS: PCP Nurse Practitioner Family; Visit Provider Specialist | DX: G47.30 Sleep apnea, unspecified (principal) | CPT/HCPCS: 95810 ==

== ENCOUNTER 2021-06-04 09:36 | Outpatient (CLI) | payer MEDICARE, MEDICAID, SELFPAY ==
--- NOTE | 2021-06-04 09:51 | XR_ITS ---
WS: [id number] Exam: XR KUB [id number] Date/Time of Exam: 06/04/2021 9:51 AM Reason For Exam: STONES No bowel obstruction or free air. Moderate amount retained stool in the colon. There are small calcif ications superimposing both renal silhouettes which may represent renal calculi. Regional bony struct ures are intact. No sign of organ enlargement. XR/XR KUB [id number] IMPRESSION: 1. No acute abdominal process. 2. Small calcifications superimpose both renal silhouettes and may represent re nal calculi.
== END 2021-06-04 09:37 | disposition home or self-care (01) ==
LOC: RAD 09:40
PROVIDERS: PCP Nurse Practitioner Family; Visit Provider Urology
DX: N20.0 Calculus of kidney (principal); N20.1 Calculus of ureter
CPT/HCPCS: 74018; 81003; 87635

== ENCOUNTER 2021-06-06 09:38 | Day surgery (SDC) | payer MEDICARE, MEDICAID, SELFPAY ==
[2021-06-05 14:50] VITALS: BMI 35.4
[2021-06-06] VITALS (11 sets, daily range): BP systolic 127–153; BP diastolic 68–97; PULSE 67–78; RESP 12–18; TEMP 36.2–36.6; O2SAT 92–97
--- NOTE | 2021-06-06 | SCC_ITS ---
Procedure done: 1. Cystoscopy, LEFT retrograde ureteropyelogram 2. Left ureteroscopy, laser lithotripsy, stent 45.3 seconds of fluoroscopic guidance, for a cumulative dose of 17.47 mGy, was provided to Dr. Hubbard by the radiology department. C-arm images of the abdomen were saved for the patient's permanent record. [facility]
--- NOTE | 2021-06-06 09:40 | SC_ITS ---
WS: [id number] INTRAOPERATIVE TECHNIQUE: 3 Spot fluoroscopic images for intraoperative purposes. FLUOROSCOPY TIME: 45.3 seconds CLINICAL INFORMATION: Left ureteroscopy, retrograde COMPARISON: None. FINDINGS: LEFT ureteroscopy with contrast injection. Placement of LEFT double-J ureteral stent. Filling defect compatible with calculus in the distal ureter as seen on the recent CT. SC/C-arm FL for Urology IMPRESSION: Images obtained for intraoperative purposes.
--- NOTE | 2021-06-06 09:40 | XR_ITS ---
WS: [id number] Exam: XR KUB [id number] Date/Time of Exam: 06/06/2021 9:52 AM Reason For Exam: Preop, left ureteral calculus Comparison 06/04/2021. No bowel obstruction or free air. No sign of organ enlargement. Regional bony structures are intact. XR/XR KUB [id number] IMPRESSION: 1. No acute finding.
[2021-06-06] MEDS: sodium chloride 0.9% 1,000 ML 30 ML IV (10:39)
[2021-06-06 10:47] LABS: Glucose Point of Care 93 mg/dL (70-110)
--- NOTE | 2021-06-06 11:37 | ANES.PREANE2 ---
Pre-Anesthetic Assessment Height/Weight: Height 1.7 m Weight 102.512 kg Temp Pulse Resp BP Pulse Ox 97.8 F 68 16 153/93 96 06/06/21 10:25 06/06/21 10:25 06/06/21 10:25 06/06/21 10:25 06/06/21 10:25 Preop Diagnosis: Left distal ureteral stone Operation Date: 06/06/21 10:55 Proposed Procedures p Cystoscopy [id number] uret N20.1(Left) - Tez Hubbard MD s Retrograde Pyelogram(Left) - MD annita Hickey Laser Lithotripsy(Left) - MD annita Hickey Ureteral Stent Placement(Left) - MD annita Hickey Ureteroscopy(Left) - Tez Hubbard MD Familial anesthetic complications: None Some hx obtained from daughter at bedside Was Beta Thania taken within 24 hours: Yes Was Clonidine taken within 24 hours: N/A Last intake: Intake Last Liquid Date 06/06/21 Last Liquid Time 03:00 Last Solid Date 06/05/21 Last Solid Time 21:00 Social Tobacco and No alcohol Exam alert, oriented x 3 and regular rate & rhythm Wheezing b/l Airway Submandibular: within normal limits Cervical ROM: Other (Limited) Mallampati: Class II Dentition: chipped Comments: Comments: Missing many teeth Pulmonary Exertional Dyspnea and Sleep Apnea CV/HEM Stable Angina, Coronary Artery Disease, Congestive Heart Failure and Hypertension Nuc Med 02/2021 ?IMPRESSIONS ?1.? Myocardial perfusion imaging revealing moderate area persistent decreased ?activity in the inferior, inferolateral and apical regions suggestive of ?myocardial scarring in the? distribution of the left circumflex artery/right ?coronary artery with a subtle area of ischemia. ?2.? Diminished ejection fraction 42%. ?3.? LV wall motion abnormalities as mentioned above. ?4.? Mildly dilated LV cavity. ?5.? Elevated transient ischemic dilatation ratio, may suggest endocardial ?ischemia.? Clinical correlation is recommended EKG 02/2021 ?? ? Interpretive Statements SINUS RHYTHM WITH OCCASIONAL VENTRICULAR PREMATURE COMPLEXES RIGHT BUNDLE BRANCH BLOCK? [120+ ms QRS DURATION, UPRIGHT V1, 40+ ms S IN I/aVL/V4/V5/V6] LEFT ANTERIOR FASCICULAR BLOCK? [QRS AXIS <= -45, QR IN I, RS IN II] POSSIBLE SEPTAL MYOCARDIAL INFARCTION , PROBABLY OLD [30 ms Q WAVE IN V1/V2] Compared to ECG 09/23/2015 18:03:59 Ventricular premature complex(es) now present Left anterior fascicular block now present Myocardial infarct finding now present Left-axis deviation no longer present Electronically Signed On 02-11-2021 13:18:49 DIRECTOR CORPORATE by Sameer Ardon M.D. [email or web address] Chronic Renal Insufficiency Kidney stones GI Gastroesophageal Reflux Disease Metabolic Diabetes Mellitus Diarrhea Musc/skel Lower Back Pain and Osteoarthritis/DJD DDD Neuropsych Anxiety and Depression Memory loss Denies stroke Anesthetic Plan ASA status: 3 Anesthesia: Anesthesia Evaluation and General Other: We discussed risk and benefits of general anesthesia including PONV, sore throat (sometimes severe), corneal abrasion, positioning and peripheral nerve injuries, life threatening allergic reaction, post operative ICU admission requiring prolonged intubation, stroke, heart attack, , and rare incidences of recall. Patient consents to proceed with general anesthesia. Risk of > 500 ml blood loss (7ml/kg in children): No Medications/Allergies Home Medications Medication Instructions Recorded Confirmed Last Taken Type blood sugar diagnostic (Blood #25 each 07/02/19 06/04/21 Unknown Rx Glucose Test) blood-glucose meter (Blood Glucose #1 each 07/02/19 06/04/21 Unknown Rx Monitoring) cyanocobalamin (vitamin B-12) 1,000 mcg IM .monthly 30 Days #1 ml 12/06/20 06/06/21 06/05/21 Rx 1,000 mcg/mL injection solution fenofibrate nanocrystallized 145 See Rx Instructions .ROUTE 12/25/20 06/06/21 06/05/21 Rx mg tablet .COMPLEX #30 tab fluoxetine 40 mg capsule See Rx Instructions .ROUTE 12/25/20 06/06/21 06/06/21 Rx .COMPLEX #30 cap isosorbide mononitrate 60 mg See Rx Instructions .ROUTE 12/25/20 06/06/21 06/06/21 Rx tablet,extended release 24 hr .COMPLEX #30 tab nitroglycerin 0.4 mg sublingual See Rx Instructions .ROUTE 12/25/20 06/06/21 Unknown Rx tablet .COMPLEX #25 tab pravastatin 40 mg tablet See Rx Instructions .ROUTE 12/25/20 06/06/21 06/06/21 Rx .COMPLEX #30 tab tamsulosin 0.4 mg capsule See Rx Instructions .ROUTE 12/25/20 06/06/21 06/06/21 Rx .COMPLEX #60 cap ondansetron HCl 4 mg tablet 4 mg PO Q8H PRN #30 tab 02/12/21 06/06/21 06/04/21 Rx (Zofran) aspirin 81 mg tablet,delayed 81 mg PO DAILY tab 02/13/21 06/06/21 06/05/21 History release (Aspirin Low Dose) ergocalciferol (vitamin D2) 1,250 See Rx Instructions .ROUTE 03/19/21 06/06/21 06/05/21 Rx mcg (50,000 unit) capsule .COMPLEX #4 cap metformin 500 mg tablet See Rx Instructions .ROUTE 03/19/21 06/06/21 06/05/21 Rx .COMPLEX #60 tab omeprazole 20 mg capsule,delayed 20 mg PO DAILY PRN #90 cap 03/27/21 06/06/21 06/05/21 Rx release metoprolol succinate 25 mg 25 mg PO DAILY #30 tab 05/10/21 06/06/21 06/06/21 Rx tablet,extended release 24 hr levothyroxine 25 mcg tablet 25 mcg PO DAILY #90 tab 05/14/21 06/06/21 06/06/21 Rx naloxone 4 mg/actuation nasal 1 spray INTRANASAL Q3M #2 ea 05/28/21 06/06/21 Unknown Rx spray (Narcan) oxycodone 15 mg tablet 15 mg PO TID 30 Days #90 tab 05/28/21 06/06/21 06/06/21 Rx memantine ER 09/20/20 See Rx Instructions PO PER PKG DIR 05/31/21 06/06/21 06/06/21 Rx mg-donepezil 10 mg #28 ea capsule,sprink,ER 24hr pack (Namzaric) Allergies Allergy/AdvReac Type Severity Reaction Status Date / Time tramadol AdvReac ADR-Headach Verified 06/04/21 10:26 e Current Medications Generic Name Dose Route Start Last Admin Trade Name Freq PRN Reason Stop Dose Admin Sodium Chloride 1,000 mls @ 30 mls/hr 06/06/21 09:45 06/06/21 10:39 Sodium Chloride 0.9% IV 06/07/21 09:44 30 mls/hr .Q24H SETH Administration PFSH Anesthesia Medical History Anxiety and depression At risk for falls Atherosclerosis of [place] coronary artery of [place] heart with angina pectoris Bilateral shoulder pain Cervical spine pain Cervical spondylosis without myelopathy Chronic pain Chronic pain of right knee DDD (degenerative disc disease), lumbar Degenerative disc disease, cervical Diverticulosis of colon Dyspnea on exertion Encounter for long-term use of opiate analgesic Encounter for long-term use of opiate analgesic Essential hypertension with goal blood pressure less than 130/80 Facet syndrome, lumbar History of kidney stones History of kidney stones HNP (herniated nucleus pulposus), cervical Hypertension Lumbosacral spondylosis without myelopathy Memory impairment of gradual onset Mixed hyperlipidemia Osteoarthritis of right knee Renal calculus, left Restless legs syndrome with nocturnal myoclonus Sleep apnea Spondylosis without myelopathy or radiculopathy, lumbar region Tobacco use disorder Type 2 diabetes mellitus without complication, with long-term current use of insulin Urinary retention Vitamin B12 deficiency Vitamin B12 deficiency (dietary) anemia Surgical History H/O local excision of skin lesion Excision of skin cancer left side of face Hx of lithotripsy right mid urethral stone 07/26/2013 S/P left rotator cuff repair S/P spinal surgery CERVICAL SPINE S/P ureteral stent placement 2013 Family History Mother , at age 70 CAD (coronary artery disease) Cancer Lung disease Brother CAD (coronary artery disease), Onset Age: 40 Lung disease Family/Other Cancer Diabetes Hypertension Stroke Chronic kidney disease (CKD) Dementia Grandmother Cancer Stroke Grandfather Cancer Sister Diabetes Lung disease Brother Lung disease Sister Lung disease Mother CAD (coronary artery disease) Father No problems noted. Denies family history of Clotting disorder Suicide Anesthesia complication Bleeding disorder Social History Smoking and tobacco status: former smoker Second hand smoke exposure: No Alcohol intake: current Alcohol intake frequency: holidays/special occasions only Lives independently: Yes Household members: children Marital status: / Current occupational status: retired History of recent travel: No Current gender identity: Male Special wei needs: No Agree to transfusion: Yes Data Anesthesia Cardiac Studies: Sestamibi Stress Test (Cardiology) 03/07/21
--- NOTE | 2021-06-06 12:30 | P.HPUD_ITS ---
Surgery/Procedure H&P Update DATE OF PROCEDURE: June 06, 2021 DATE H&P PERFORMED: 06/04/21 H&P UPDATE INFORMATION: I have reviewed H&P completed within last 30 days, I have examined patient prior to procedure, No changes to prior documentation and H&P is in [facility] EMR on date indicated CHANGES TO PREVIOUS DOCUMENTATION: KUB shows a stone in the same position. He is still symptomatic. Proceed as scheduled. PREOP DIAGNOSIS: Left distal ureteral stone PLANNED PROCEDURE: Operation Date: 06/06/21 10:55 Proposed Procedures p Cystoscopy [id number] uret N20.1(Left) - Tez Hubbard MD s Retrograde Pyelogram(Left) - MD annita Hickey Laser Lithotripsy(Left) - MD annita Hickey Ureteral Stent Placement(Left) - MD annita Hickey Ureteroscopy(Left) - Tez Hubbard MD
[2021-06-06] MEDS: levofloxacin-dextrose 5 % 500 MG/100 ML PREMIX 100 MG IV (12:40)
[2021-06-06] MEDS: lidocaine 2% Urojet 20 mL TOPICAL (13:11)
[2021-06-06] MEDS: iohexol 300 mg/mL 50 mL Btl (OR ONLY) XX (13:11)
--- NOTE | 2021-06-06 13:43 | PM.OP ---
Operative Report Date of procedure: June 06, 2021 Pre-op diagnosis: Left distal ureteral stone Post-op diagnosis: Left distal ureteral stone Procedure done: 1. Cystoscopy, LEFT retrograde ureteropyelogram 2. Left ureteroscopy, laser lithotripsy, stent Implants: Left ureteral stent (7 Trinidadian by 28 cm double-pigtail Specimens removed/disposition: Stone fragments Pathology: Stone fragments Surgeon: Haydee Anesthesia: General Less than 2 cc Urine output: Not measured Complications: None Findings: Stone in the expected position. Required fragmentation with laser lithotripsy. Stent left indwelling. Brief History: Anthony is a very pleasant 70-year-old white male with a history of recurrent urolithiasis and recently with onset of left renal colicky symptoms and CT scan proven 5 to 7 mm left distal ureteral stone recently. No infection. He was having bad enough pain and he tried to pass it but could not and for that reason elected treatment. Admitted to date Outpatient Surgery for endoscopic treatment of the stone. Procedure: After routine preoperative evaluation examination and obtaining of informed consent he was taken to the operating suite on 06/06/2021 where general anesthesia was administered without difficulty after appropriate timeout was performed, SCDs confirmed to be functioning, the operative antibiotics administered, beta-sharif protocol confirmed. Prepped and draped in the usual sterile fashion in dorsolithotomy position paying careful attention to avoiding pressure points. 21 Trinidadian cystoscope with 30 degree lens was introduced into the urethral meatus and advanced into the bladder under videoscopy. The bladder was systematically examined. No stones were seen. 8 Trinidadian cone-tip catheter intubated into the left ureteral orifice for left retrograde ureteropyelogram which demonstrated: Ureter distal to the filling defect consistent with a stone was normal. The ureter proximal to the stone was somewhat dilated. There is some tortuosity to the distal ureter as well. No other stones were seen. Flexible tip guidewire was then passed but has some difficulty passing the tortuous portion of the distal ureter and therefore an open-ended ureteral catheter was passed over the guidewire which easily straightened out the ureter and allowed easy passage of the wire up into the renal pelvis. The opening ureteral catheter was removed. The distal ureter was then dilated with a 15 Trinidadian 4 cm balloon. It required 10 marie of pressure to dilate the ureter just distal to where the stone had been located before was pushed up into the more proximal aspect of the distal ureter. The balloon was deflated and the bladder drained. The wire was secured to the drapes as a safety wire and a 7.5 Trinidadian offset semirigid ureteroscope was advanced up the left ureter next to the guidewire. The stone was encountered in its expected position. The area of narrowing showed significant inflammatory changes distal to the location of the stone. A 365 ?m thulium superpulse laser fiber was utilized to fragment the stone into small enough pieces that were removed with flushing and/or X catch basket. On final inspection no significant fragments remained. The area of inflammatory changes was warranted to be enough to potentially be post procedure obstructive and for that reason it was decided to leave a stent in postoperatively. The cystoscope was then backloaded over the guidewire and a 7 Trinidadian by 28 cm double-pigtail stent was advanced over the guidewire through the cystoscope into appropriate position as confirmed via fluoroscopy and cystoscopy. Stent was confirmed to be functioning well. The stone fragments that had migrated into the bladder or were dropped into the bladder after basketing were then flushed free from the bladder and sent for pathologic evaluation. Bladder was drained and the procedure was completed. He tolerated the procedure well without complications and was awakened in the operating room and returned to the recovery room in stable condition. PLANS: 1. Anticipate discharge from outpatient surgery 2. Maintain stent for approximately 7 to 10 days and remove in the office
--- NOTE | 2021-06-06 16:10 | ANE.PACU2 ---
Inpatient post-anesthesia follow up: Airway intact: Yes Vital signs: Temperature 97.8 F Pulse Rate 67 Respiratory Rate 16 Blood Pressure 138/89 Pulse Oximetry 94 Oxygen Delivery Me thod Room Air Oxygen Flow Rate 3 Fraction of Inspir ed Oxygen Hydration adequate: Yes Nausea and vomiting: No Pain level: 2 Mental status: Baseline
== END 2021-06-06 15:35 | disposition home or self-care (01) ==
PROVIDERS: PCP Nurse Practitioner Family; Visit Provider Urology
PROC: 0TJB8ZZ Inspection of Bladder, Via Natural or Artificial Opening Endoscopic (ICD-10-PCS; CPT 52000; principal; 2021-06-06 10:45)
PROC: (CPT 74420; 2021-06-06 10:45)
PROC: (CPT 52356; 2021-06-06 10:45)
PROC: (CPT 50605; 2021-06-06 10:45)
PROC: 0TJ98ZZ Inspection of Ureter, Via Natural or Artificial Opening Endoscopic (ICD-10-PCS; CPT 52351; 2021-06-06 10:45)
DX: N20.1 Calculus of ureter (principal); G47.30 Sleep apnea, unspecified; I25.110 Atherosclerotic heart disease of native coronary artery with unstable angina pectoris; I11.0 Hypertensive heart disease with heart failure; I50.9 Heart failure, unspecified; K21.9 Gastro-esophageal reflux disease without esophagitis; E11.9 Type 2 diabetes mellitus without complications; F41.9 Anxiety disorder, unspecified; F32.9 Major depressive disorder, single episode, unspecified; E78.2 Mixed hyperlipidemia; Z79.4 Long term (current) use of insulin; Z87.891 Personal history of nicotine dependence
CPT/HCPCS: 52356; 36416; 74018; 76000; 82365; 82962; 88300; C2625; J1100; J1956; J2405; J2704; J2710; J3010; J3490; J7030

== ENCOUNTER → 2021-06-12 14:27 | Outpatient (BNVA) | payer MEDICARE, SELFPAY | PROVIDERS: PCP Nurse Practitioner Family; Visit Provider Specialist | DX: G30.9 Alzheimer's disease, unspecified (principal); F02.80 Dementia in other diseases classified elsewhere, unspecified severity, without behavioral disturbance, psychotic disturbance, mood disturbance, and anxiety; G47.33 Obstructive sleep apnea (adult) (pediatric); G43.711 Chronic migraine without aura, intractable, with status migrainosus; G89.29 Other chronic pain; K59.00 Constipation, unspecified; Z79.891 Long term (current) use of opiate analgesic; Z87.891 Personal history of nicotine dependence | CPT/HCPCS: 99214 ==

== ENCOUNTER 2021-06-19 14:37 | Outpatient (CLI) | payer MEDICARE, MEDICAID, SELFPAY ==
--- NOTE | 2021-06-19 14:15 | XRR_ITS ---
PROCEDURE INFORMATION: Exam: XR Abdomen Exam date and time: 06/19/2021 3:04 PM Age: 70 years old Clinical indication: Condition or disease; Kidney or ureter condition; Calculus (stone) in ureter; Prior surgery; Surgery type: Ureter stent; Additional info: Left ureteral calculus, [email or web address] 06/19/21 @ 215 appt to follow TECHNIQUE: Imaging protocol: XR of the abdomen. Views: Frontal supine view of the abdomen. 1 View. COMPARISON: CR XR KUB [id number] 06/06/2021 9:59 AM FINDINGS: Tubes, catheters and devices: A double-J ureteral stent is present on the left side in good position. Gastrointestinal tract: Normal. No bowel dilation. Bones/joints: Unremarkable. XR/XR KUB [id number] IMPRESSION: 1. No acute findings. 2. Left side ureteral stent in good position
== END 2021-06-19 14:38 | disposition home or self-care (01) ==
PROVIDERS: PCP Nurse Practitioner Family; Visit Provider Urology
DX: N20.2 Calculus of kidney with calculus of ureter (principal); Z96.0 Presence of urogenital implants
CPT/HCPCS: 74018; 81003

== ENCOUNTER → 2021-06-26 11:29 | Outpatient (BNVA) | payer MEDICARE, MEDICAID, SELFPAY | PROVIDERS: PCP Nurse Practitioner Family; Visit Provider Family Medicine | DX: E11.9 Type 2 diabetes mellitus without complications (principal); Z79.4 Long term (current) use of insulin; E78.2 Mixed hyperlipidemia; E53.8 Deficiency of other specified B group vitamins; E55.9 Vitamin D deficiency, unspecified; Z12.5 Encounter for screening for malignant neoplasm of prostate; M51.36 Other intervertebral disc degeneration, lumbar region; M50.30 Other cervical disc degeneration, unspecified cervical region | CPT/HCPCS: 80053; 80061; 82306; 82607; 83036; 84443; 85025; G0103 ==

== ENCOUNTER → 2021-09-28 12:15 | Outpatient (BNVA) | payer MEDICARE, MEDICAID, SELFPAY | PROVIDERS: PCP Nurse Practitioner Family; Visit Provider Nurse Practitioner Family | DX: E78.2 Mixed hyperlipidemia (principal); N18.9 Chronic kidney disease, unspecified; Z00.00 Encounter for general adult medical examination without abnormal findings; Z79.4 Long term (current) use of insulin; G43.711 Chronic migraine without aura, intractable, with status migrainosus; F32.9 Major depressive disorder, single episode, unspecified; F41.9 Anxiety disorder, unspecified; E11.22 Type 2 diabetes mellitus with diabetic chronic kidney disease; I12.9 Hypertensive chronic kidney disease with stage 1 through stage 4 chronic kidney disease, or unspecified chronic kidney disease | CPT/HCPCS: 80053; 80061; 83036 ==

== ENCOUNTER → 2021-10-17 08:25 | Outpatient (BNVA) | payer MEDICARE, MEDICAID, SELFPAY | PROVIDERS: PCP Nurse Practitioner Family; Referring Provider Nurse Practitioner Family; Visit Provider Podiatrist Foot & Ankle Surgery | DX: B35.3 Tinea pedis (principal); L84 Corns and callosities; E11.8 Type 2 diabetes mellitus with unspecified complications; B35.1 Tinea unguium | CPT/HCPCS: 11721 ==

== ENCOUNTER 2021-10-31 20:00 | Outpatient (CLI) | payer MEDICARE, MEDICAID, SELFPAY | END 2021-10-31 20:01 | disposition home or self-care (01) | LOC: SLEEP 11-01 11:21 | PROVIDERS: PCP Nurse Practitioner Family; Visit Provider Family Medicine | DX: G47.33 Obstructive sleep apnea (adult) (pediatric) (principal) | CPT/HCPCS: 95811 ==

== ENCOUNTER → 2021-11-08 13:41 | Outpatient (BNVA) | payer MEDICARE, SELFPAY | PROVIDERS: PCP Nurse Practitioner Family; Visit Provider Internal Medicine Cardiovascular Disease | DX: I25.119 Atherosclerotic heart disease of native coronary artery with unspecified angina pectoris (principal); E11.9 Type 2 diabetes mellitus without complications; Z79.4 Long term (current) use of insulin; E78.2 Mixed hyperlipidemia; I10 Essential (primary) hypertension; Z87.891 Personal history of nicotine dependence | CPT/HCPCS: 99214 ==

== ENCOUNTER 2021-12-20 14:23 | Outpatient (CLI) | payer MEDICARE, SELFPAY ==
--- NOTE | 2021-12-20 14:38 | XR_ITS ---
WS: [id number] KUB, AP view, 12/20/2021 Clinical Data: Urolithiasis Comparison: KUB, 06/19/2021. Findings: No abnormal intraabdominal masses or calcifications are seen. There is no dilatated small bowel or ev idence of obstruction. The left ureteral stent has been removed. There is fecal material throughout the colon. XR/XR KUB [id number] Impression: Negative KUB.
== END 2021-12-20 14:24 | disposition home or self-care (01) ==
PROVIDERS: PCP Nurse Practitioner Family; Visit Provider Urology
DX: N20.2 Calculus of kidney with calculus of ureter (principal); N40.1 Benign prostatic hyperplasia with lower urinary tract symptoms; R35.1 Nocturia
CPT/HCPCS: 74018; 81003; 99213

== ENCOUNTER → 2022-01-01 10:00 | Outpatient (BNVA) | payer MEDICARE, SELFPAY | PROVIDERS: PCP Nurse Practitioner Family; Visit Provider Nurse Practitioner Family | DX: F41.9 Anxiety disorder, unspecified (principal); F32.9 Major depressive disorder, single episode, unspecified; E78.2 Mixed hyperlipidemia; I10 Essential (primary) hypertension; N20.0 Calculus of kidney; E11.9 Type 2 diabetes mellitus without complications; Z79.4 Long term (current) use of insulin; E55.9 Vitamin D deficiency, unspecified | CPT/HCPCS: 80053; 80061; 82043; 82306; 82607; 83036; 83735; 84443; 84550; 85025 ==

== ENCOUNTER → 2022-01-16 13:07 | Outpatient (BNVA) | payer MEDICARE, SELFPAY | PROVIDERS: PCP Nurse Practitioner Family; Referring Provider Specialist; Visit Provider Specialist | DX: M50.30 Other cervical disc degeneration, unspecified cervical region (principal); G56.13 Other lesions of median nerve, bilateral upper limbs | CPT/HCPCS: 95910; 95913 ==

== ENCOUNTER 2022-02-04 06:06 | Outpatient (CLI) | payer MEDICARE, SELFPAY ==
--- NOTE | 2022-02-04 | CT_ITS ---
WS: [id number] CT CERVICAL SPINE TECHNIQUE: Noncontrast CT of the cervical spine with coronal and sagittal reformatted images. CLINICAL INFORMATION: Cervical Disc disorder at C4-C5 level with myelopathy COMPARISON: CT January 09, 2015 DLP: 310.[address] scans at [facility] use at least one of these dose optimization techniques: automated e xposure control; mA and/or kV adjustment per patient size (includes targeted exams where dose is matc hed to clinical indication); or iterative reconstruction. FINDINGS: Straightening of the normal cervical lordosis. ACDF C5-C6. No evidence of hardware screw loosening. N o high-grade central canal stenosis. Mastoid air cells well aerated. C2-C3: Moderate LEFT facet arthropathy. Spinal canal and foramen are patent. C3-C4: Moderate facet arthropathy worse in the LEFT. Mild LEFT and no significant RIGHT foraminal cortney rowing. Spinal canal is patent. C4-C5: Disc osteophyte complex endplate ridging. Mild central canal stenosis. Moderate LEFT greater t natarajan RIGHT bony foraminal narrowing. C5-C6: Prior postoperative changes ACDF. Mild central canal stenosis. Endplate osteophytic ridging. M oderate bilateral bony foraminal narrowing. Mild facet arthropathy. C6-C7: Spinal canal and foramen are patent. C7-T1: No significant disc bulging. Spinal canal and foramen are patent. Visualized posterior nasopharynx: Normal. Prevertebral soft tissues: Normal. CT/CT cervical spin wo con* [id number] IMPRESSION: 1. Straightening of the normal cervical lordosis. Postoperative changes ACDF C 5-C6 with interbody fusion graft. No evidence of hardware loosening. Evidence o f bony bridging beyond the confines of the graft. 2. Mild central canal stenosis C4-C5 and C5-C6. 3. Moderate bony foraminal narrowing worse at LEFT C4-C5, bilateral C5-C6. Thi s is similar in appearance to previous.
== END 2022-02-04 06:07 | disposition home or self-care (01) ==
LOC: RAD 06:07
PROVIDERS: PCP Nurse Practitioner Family; Visit Provider Specialist
DX: M50.021 Cervical disc disorder at C4-C5 level with myelopathy (principal); M48.02 Spinal stenosis, cervical region
CPT/HCPCS: 72125

== ENCOUNTER → 2022-03-08 14:16 | Outpatient (BNVA) | payer MEDICARE, SELFPAY | PROVIDERS: PCP Nurse Practitioner Family; Visit Provider Nurse Practitioner Family | DX: R05.9 Cough, unspecified (principal); R06.02 Shortness of breath; Z20.822 Contact with and (suspected) exposure to COVID-19; J40 Bronchitis, not specified as acute or chronic | CPT/HCPCS: 71046; 87400; 87426 ==

== ENCOUNTER → 2022-04-22 14:48 | Outpatient (BNVA) | payer MEDICARE, SELFPAY | PROVIDERS: PCP Nurse Practitioner Family; Visit Provider Nurse Practitioner Family | DX: R05.9 Cough, unspecified (principal); E11.9 Type 2 diabetes mellitus without complications; Z79.4 Long term (current) use of insulin; Z79.899 Other long term (current) drug therapy; I10 Essential (primary) hypertension | CPT/HCPCS: 71046; 80053; 80061; 82306; 82607; 83036; 84443; 85025 ==

== ENCOUNTER → 2022-04-23 13:03 | Outpatient (BNVA) | payer MEDICARE, SELFPAY | PROVIDERS: PCP Nurse Practitioner Family; Visit Provider Podiatrist Foot & Ankle Surgery | DX: E11.8 Type 2 diabetes mellitus with unspecified complications (principal); L84 Corns and callosities; B35.3 Tinea pedis; B35.1 Tinea unguium; Z79.84 Long term (current) use of oral hypoglycemic drugs | CPT/HCPCS: 11721 ==

== ENCOUNTER → 2022-05-09 14:13 | Outpatient (BNVA) | payer MEDICARE, SELFPAY | PROVIDERS: PCP Nurse Practitioner Family; Visit Provider Internal Medicine Cardiovascular Disease | DX: I25.10 Atherosclerotic heart disease of native coronary artery without angina pectoris (principal); R06.02 Shortness of breath; E78.2 Mixed hyperlipidemia; I10 Essential (primary) hypertension; Z79.82 Long term (current) use of aspirin; Z87.891 Personal history of nicotine dependence | CPT/HCPCS: 93005; 99214 ==

== ENCOUNTER → 2022-05-09 14:13 | Outpatient (BNVA) | payer MEDICARE, SELFPAY | PROVIDERS: PCP Nurse Practitioner Family; Visit Provider Internal Medicine Cardiovascular Disease | DX: R06.02 Shortness of breath (principal) | CPT/HCPCS: 36415; 80048; 83880 ==

== ENCOUNTER → 2022-05-21 10:43 | Outpatient (BNVA) | payer MEDICARE, SELFPAY | PROVIDERS: PCP Nurse Practitioner Family; Visit Provider Internal Medicine Cardiovascular Disease | DX: R06.02 Shortness of breath (principal); I25.10 Atherosclerotic heart disease of native coronary artery without angina pectoris; Z01.810 Encounter for preprocedural cardiovascular examination | CPT/HCPCS: 80048; 83880 ==

== ENCOUNTER 2022-06-05 07:52 | Outpatient (CLI) | payer MEDICARE, SELFPAY ==
--- NOTE | 2022-06-05 13:30 | USCV_ITS ---
Anthony Sesay Age: 71 Gender: M : 1950 Exam Date: 06/05/2022 08:50 Ordering Phys: Brooks Hamlin MD ([email or web address]) Technologist: CT Exam Location: [facility] [place] Indication: COPD, CHF BP: 165 / 85 HR: 66 Rhythm: Sinus Technical Quality: Adequate MEASUREMENTS (Male / Female) Normal Values 2D ECHO LV Diastolic Diameter PLAX 5.7 cm 4.2 - 5.9 / 3.9 - 5.3 cm LV Systolic Diameter PLAX 4.3 cm IVS Diastolic Thickness 1.7 cm 0.6 - 1.0 / 0.6 - 0.9 cm IVS Systolic Thickness 3.0 cm LVPW Diastolic Thickness 1.0 cm 0.6 - 1.0 / 0.6 - 0.9 cm LVPW Systolic Thickness 1.9 cm LVOT Diameter 2.1 cm LV Ejection Fraction 2D Teich 48.7 % LV Ejection Fraction MOD 2C 74.0 % LV Ejection Fraction 2C AL 76.5 % LA Diameter 4.2 cm LA Width 3.8 cm LA Height 4.5 cm RA Width 4.0 cm RA Height 4.2 cm Aorta at Sinotubular Diameter 3.6 cm IVC Diameter 1.7 cm M-MODE MV E Point Septal Separation 1.0 cm DOPPLER AV Peak Velocity 112.0 cm/s LVOT Peak Velocity 95.0 cm/s AV Area Cont Eq vti 3.1 cm squared AV Area Cont Eq pk 2.9 cm squared MV Area PHT 2.9 cm squared Mitral E to A Ratio 0.8 MV E' Velocity 31.5 cm/s Mitral E to MV E' Ratio 18.2 Mitral E to LV E' Lateral Ratio 18.8 Mitral E to LV E' Septal Ratio 17.6 TR Peak Velocity 169.0 cm/s TR Peak Gradient 11.4 mmHg Right Atrial Pressure 3.0 mmHg Pulmonary Artery Systolic Pressu 14.4 mmHg PV Peak Velocity 66.0 cm/s RV Acceleration Time 0.1 s RV Ejection Time 0.3 s RV AcT/ET 0.4 FINDINGS Left Ventricle Normal LV size with a diminished ejection fraction of around 50%. Diffuse hypokinesia of the left ventricle.mild left ventricular hypertrophy. Grade I/IV diastolic dysfunction (abnormal relaxation filling pattern), normal to mildly elevated filling pressures. Right Ventricle Possibly normal right ventricular size and ejection fraction Right Atrium The right atrium is normal in size. Left Atrium Mildly increased left atrial size. Mitral Valve Structurally normal mitral valve without significant stenosis or prolapse. There is no mitral regurgitation. Aortic Valve Thickened aortic valve. Tricuspid Valve Trace tricuspid valve regurgitation. Pulmonic Valve Pulmonic valve not well visualized. Pericardium No pericardial effusion. Aorta Normal aortic annulus size. IVC The inferior vena cava possibly of normal size CONCLUSIONS Normal LV size with a diminished ejection fraction of around 50% (visual). Diffuse hypokinesia of the left ventricle.mild left ventricular hypertrophy. Grade I/IV diastolic dysfunction (abnormal relaxation filling pattern), normal to mildly elevated filling pressures. Mildly increased left atrial size. Trace tricuspid valve regurgitation. Thickened aortic valve. Estimated pulmonary artery peak systolic pressure possibly normal. Could not be calculated properly because of the poor Doppler signals. There is no pericardial effusion. Technically difficult study because of the poor ultrasonic window. Dr Brooks Hamlin MD FACC (Electronically Signed) Final Date: 06 June 2022 09:39 S
== END 2022-06-05 07:53 | disposition home or self-care (01) ==
LOC: RAD 07:55
PROVIDERS: PCP Nurse Practitioner Family; Visit Provider Internal Medicine Cardiovascular Disease
DX: R06.09 Other forms of dyspnea (principal); I50.20 Unspecified systolic (congestive) heart failure
CPT/HCPCS: 36415; 80048; 83880; 93306

== ENCOUNTER 2022-06-06 07:46 | Outpatient (CLI) | payer MEDICARE, SELFPAY ==
--- NOTE | 2022-06-06 | ECG_ITS ---
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 Interpretive Statements NAME OF STUDY: LEXISCAN SESTAMIBI STRESS TEST INDICATION: [CHF; Pre Operative Clearance, ] PROCEDURE: At the baseline, the EKG revealed sinus rhythm with a frequent ventricular ectopics. Right bundle branch block. Left anterior fascicular block. The baseline heart was 76 bpm with a blood pressue of 182/117 mm of Hg Lexiscan was infused over a period of 20 seconds. A total of 0.4 milligrams of Lexiscan was infused. The stress phase was continued for a total of 5 minutes. Heart rate at the end of the stress phase was 70 bpm with a blood pressure 160/116 mm of Hg. The EKG at the peak infusion revealed almost completely visit disappearance of the PVCs []. Sestamibi was injected 20 seconds after the Lexiscan infusion. Heart rate at the end of the recovery phase was 79 bpm with a blood pressure of 166/99 mm of Hg. CONCLUSION: 1. No significant EKG changes with the[] LexiScan infusion[] 2. No LexiScan induced chest pain or cardiac arrhythmia [] 3. Normal blood pressure and heart rate response [] 4. Sestamibi/sestamibi perfusion scan pending; see separate report. Electronically Signed On 06-07-2022 17:51:56 CDT by Brooks Hamlin M.D. [id number]
[2022-06-06 08:14] VITALS: BMI 38.2
--- NOTE | 2022-06-06 08:14 | NMCV_ITS ---
NM amando perf SPECT r/s* [id number] Anthony Sesay Age: 71 Gender: M : 1950 Exam Date: 06/06/2022 08:55 Ordering Phys: Brooks Hamlin MD ([email or web address]) Technologist: MATT Dunlap Exam Location: [facility] Indications: SHORTNESS OF BREATH; ATHEROSCLEROTIC HEART DISEASE STRESS TEST Please see separate stress test report in [facility] for full findings IMAGE PROTOCOL Rest/Stress 1 Lexiscan Day Radiopharmaceutical Dose (mCi) Administration Site Administered by Rest: Tc-99m 11.0 IV MATT Dunlap Sestamibi Stress:Tc-99m 32.7 IV MATT Flores Sestamibi Rest: 06-Jun-2022 60 Discovery 630 Stress: 06-Jun-2022 30 Discovery 630 0.4mg Lexiscan. Supine position only as patient was unable to lay prone. SPECT RESULTS Technical Quality: Excellent Raw Data Analysis: Normal Image Corrections: No attenuation or motion correction applied Summed Stress Score: 13 Summed Rest Score: 10 Summed Difference Score: 4 PERFUSION FINDINGS Moderate area of moderate to severely decreased tracer uptake was noted in the mid and apical inferior, basal and mid inferolateral, mid inferoseptal, apical lateral, apical septal and LV apex. Some reversibility was noted in the inferolateral and, apical lateral and apical septal segments. FUNCTIONAL RESULTS (calculated via Gated SPECT) Stress Image LV EF (%): 42 Stress EDV (mL):123 TID: 1 Stress ESV (mL):71 FUNCTIONAL FINDINGS: Segmental wall motion analysis revealing diffuse hypokinesia of the inferior wall, apex and the septal segments IMPRESSIONS 1. Myocardial perfusion imaging revealing area of moderate to moderately severe decreases uptake in the inferolateral, inferior, inferoseptal and apical segments there is some areas of reversibility in the inferolateral and apical regions suggesting myocardial scarring in the distribution of the left circumflex artery and right coronary artery with small areas of marilee-infarction ischemia mostly in the circumflex territory. 2. Diminished LV ejection fraction 42%. 3. Multiple wall motion abnormalities as mentioned above. 4. Mildly dilated LV cavity with an end-systolic volume of 71 mL. Compared to the study from 03/07/2021, the area of ischemia appears to be new Dr Brooks Hamlin MD FACC (Electronically Signed) Final Date: 06 June 2022 21:29 S
[2022-06-06] MEDS: regadenoson 0.4 Mg/5 ml Syringe IVP (09:30)
[2022-06-06 10:00] VITALS: BP 166/99; PULSE 79
== END 2022-06-06 07:47 | disposition home or self-care (01) ==
PROVIDERS: PCP Nurse Practitioner Family; Visit Provider Internal Medicine Cardiovascular Disease
DX: R06.02 Shortness of breath (principal); I25.10 Atherosclerotic heart disease of native coronary artery without angina pectoris; I50.9 Heart failure, unspecified
CPT/HCPCS: 36415; 78452; 93017; 96374; A9500; J2785

== ENCOUNTER 2022-06-25 13:49 | Outpatient (CLI) | payer MEDICARE, SELFPAY ==
--- NOTE | 2022-06-25 14:58 | XR_ITS ---
WS: [id number] KUB, AP view, 06/25/2022 Clinical Data: STONE Comparison: KUB, 12/20/2021 Findings: No abnormal intraabdominal masses or calcifications are seen. There is no dilatated small bowel or ev idence of obstruction. There is a moderate amount of fecal material in the colon. XR/XR KUB [id number] Impression: Negative KUB.
[2022-06-25 15:37] LABS: PSA Screen - Urology 0.32 ng/mL (0-4)
== END 2022-06-25 13:50 | disposition home or self-care (01) ==
LOC: LAB 13:51
PROVIDERS: PCP Nurse Practitioner Family; Visit Provider Urology
DX: Z12.5 Encounter for screening for malignant neoplasm of prostate (principal); N20.2 Calculus of kidney with calculus of ureter; N40.1 Benign prostatic hyperplasia with lower urinary tract symptoms; R35.1 Nocturia; R35.89 Other polyuria
CPT/HCPCS: 51798; 74018; 99213; G0103

== ENCOUNTER 2022-07-05 12:53 | Observation (INO) | payer MEDICARE, SELFPAY ==
[2022-07-05] VITALS (65 sets, daily range): BP systolic 79–126; BP diastolic 54–78; PULSE 67–93; RESP 10–26; TEMP 36.6–36.8; O2SAT 93–97; BMI 38.4
--- NOTE | 2022-07-05 10:30 | XACV_ITS ---
Exam Room: 2 Ht: 165 cm Wt: 105 kg BSA: 2.24 m2 Gender: Male : 1950 Any Known Allergies: Other Exam Priority: Routine Procedure(s): Procedure Description: Diagnostic procedure Procedure Description: Left Heart Catheterization Procedure Description: Coronary Angiography Boubacar MOHAMUD; Diagnostic Cath Status: Elective Diagnostic Findings * The left main is a medium to large caliber vessel with 10% tapering narrowing distally.. * The left artery descending artery is a medium to large caliber vessel with bumpy lumpy diffuse lesions in the proximal and mid segments, ranging anywhere from 30 to 40%. The first diagonal branch was found and ostial around 40% narrowing. The first septal poultry cleaner also had an ostial around 40% narrowing. The distal artery was found minimal intimal irregularities. It appears to wrap around the LV apex.. * The circumflex artery is a medium to large caliber vessel which appears to have mild diffuse ectasia proximally. The first obtuse marginal artery is a relatively small caliber vessel with no significant distal artery lesion. The second obtuse marginal artery is a large-caliber vessel which was found to have proximal around 40% tubular narrowing. No other significant lesions were noted.. * The right coronary artery is a medium caliber codominant vessel which I was found to have diffuse tubular narrowing of around 30% proximally. The mid and distal segments were found to have mild eccentric irregular narrowing. The PDA and the PLV branches were found to be relatively small caliber with a mild to moderate diffuse narrowing. No significant stenotic lesions were noted. Conclusions 1. 71-year-old white male with history of hypertension, type 2 diabetes, dyslipidemia, previous history of coronary disease, presenting with increasing episodes of chest pain. Myocardial perfusion imaging revealing small areas of reversible defects in the distribution of the left circumflex artery/right coronary artery. In view of the patient's multiple risk factors and the ongoing symptoms, in order to further evaluate his coronary status, a cardiac catheterization was recommended. He underwent left heart catheterization with left and right coronary angiogram today. The findings are as follows. 2. Mild diffuse coronary artery disease. 2. Codominant left circumflex artery. Elevated LVEDP of 20 mmHg. Diagnostic RX Recommendation: medical therapy and/or counseling LV EDP: 20 mmHg Left Ventriculography Findings: * LV gram was not performed because of the concern about the dye overload and patient is a chronic kidney disease. The LVEDP was 20 mmHg.. Pressures Phase:Rest AO : 80 / 67 ( 73 ) @ 1:22:00 PM 80 / 68 ( 74 ) @ 1:23:00 PM 101 / 19 ( 55 ) @ 1:34:00 PM 86 / 62 ( 71 ) @ 1:34:00 PM 86 / 59 ( 66 ) @ 1:35:00 PM LV : 93 / 8 / 20 @ 1:33:00 PM Clinical Evaluation EBL: 5mL-10mL Procedural Details Procedure Consent Obtained. Admit Source: Out Patient. Pre-Procedure Time Out. Identified patient by full name and date of as verbalized by the patient/guarantor. Does the consent match the physician's order: Yes. Accurate & Complete Informed Consent: Yes. Inpatient/Outpatient History & Physical on Chart: Yes. If H&P is completed, is and addenduem needed: No; If yes, is the addendum complete: N/A. Visualize and Verify Site with Patient/Guarantor: N/A. Relevant Radiology Images available: Yes. Pre-op teaching completed and patient verbalized understanding. The risks, benefits, and alternatives of sedation and/or procedure were discussed by physician. The patient agrees to continue. Procedure started. Current Diagnosis : Chest Pain. [facility] Clinical Fraility Score: 3: Managing Well. 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 Chest Pain Symptom Assessment: Typical Angina Symptoms. Correct patient, site and procedure confirmed by cath team. Current diagnosis: Chest Pain. PERRLA. Strong, equal hand chiller hand bilaterally. Lungs clear x 5 lobes. IV Site on Arrival: 20 gauge in the right anticubital. IV Fluids: 0.9% NaCl at KVO. 0 mL infused prior to labor relations director. Pre Procedural Pulses: bilateral dorsalis pedis was 3+. Pre Procedural Pulses: bilateral posterior tibial was 1+. Pre Procedural Pulses: bilateral radial was 3+. Oxygen started at 2liters/min via nasal canula. right groin was prepped with chloroprep then draped in the usual sterile fashion. Physician notified. Baseline sample Acquired. HR: 78 BPM. Physician arrived. Physician scrubbed in. Immediate Pre-Procedure Time Out. Correct Patient: Yes; Correct Procedure: Yes; Correct Site: Yes; Correct Patient Position: Yes; Correct Supplies: Yes; Dried Flammable Prep: Yes; Blood Products Available: N/A;. Lidocaine 1% infiltrated to the right groin. Arterial access obtained with micropuncture set. A 5 malawian JL4 catheter in over wire. Multiple views taken of left coronary artery. Catheter removed over the standard wire. A 5 malawian JR4 catheter in over wire. Multiple views taken of right coronary artery. Catheter removed over the standard wire. A 5 malawian Angled Pig catheter in over wire. EDP Sample taken: LV 93/8,20; HR: 78 BPM; SpO2: 95%. Pullback taken: LV Off; AO Off; Mean: , Peak to Peak: , SEP: ; HR: 79 BPM; SpO2: 95%. Catheter removed over the standard wire. Sheath(s) sutured into position with 2-0 silk and sterile 4x4's and Op-site applied over the site. No oozing or signs and symptoms of hematoma noted. Arterial sheath flushed and connected to tranducer and pressure bag with heparinized saline. Post Procedure: Pulses reassessed and unchanged. PERRLA. Strong, equal hand chiller hand bilaterally. No VTE prophylaxis required. Total IV fluids: 300 mL. Complications: None. Estimated blood loss: 5mL-10mL. Responsiveness - Normal response to verbal stimuli; alert and oriented, PERRLA. Airway - Unaffected, no intervention required; spontaneous ventilation. Circulation: W/N/L, pulses unchanged. Nausea/Vomiting: No. Procedure completed. Patient transferred by bed to 1st floor. Vital chart was stopped. A Suture was successful obtaining hemostatsis at the Right Femoral artery insertion site. Access Site Site: Right Femoral artery Sheath Size: 5 Fr Hemostasis Method: Suture Hemostasis Success: Successful Procedure Medications Start: 12:10 PM Stop: 12:10 PM Medication: Versed Amount: 1 mg Route: I.V. Start: 12:11 PM Stop: 12:11 PM Medication: Versed 1 mg and Fentanyl 25 mcg Amount: 1 Route: I.V. Start: 12:15 PM Stop: 12:15 PM Medication: Heparin Amount: 1500 units Route: I.V. Start: 12:17 PM Stop: 12:17 PM Medication: 0.9% Saline Amount: 250 ml Route: I.V. bolus Start: 12:23 PM Stop: 12:23 PM Medication: Fentanyl Amount: 50 mcg Route: I.V. Start: 12:27 PM Stop: 12:27 PM Medication: Fentanyl Amount: 25 mcg Route: I.V. Start: 12:34 PM Stop: 12:34 PM Medication: 0.9% Saline Amount: 250 ml Route: I.V. bolus I, the attending physician, have reviewed and verified all procedure medications. Yes, all medications given per verbal order History/Risk Factors Hypertension: Yes Dyslipidemia: Yes Peripheral Arterial Disease (PAD): No Myocardial Infarction (ND): No Obesity: Yes Renal Disease: No Tobacco Use: Former Prior Interventions PCI: No CABG: No Valve Surgery: No Report Signatures Finalized by Dr Brooks Hamlin MD [facility] on 07/05/2022 06:14 PM
[2022-07-05] MEDS: diphenhydrAMINE 50 mg Capsule PO (11:25)
[2022-07-05 11:26] LABS: Basophils # 0.1 10^3/uL (0.0-0.1); Basophils % 0.5 %; Eosinophils # 0.4 10^3/uL (0.0-0.8); Eosinophils % 4.3 %; Hematocrit 41.3 % (42.0-52.0); Lymphocytes # 3.2 10^3/uL (0.8-4.8); Mean Corpuscular HGB Conc 31.5 g/dL (30.0-36.0); Mean Corpuscular Volume 98.3 fl (80-94); Mean Platelet Volume 9.4 fL (7.4-10.4); Monocytes # 0.6 10^3/uL (0.2-0.9); Monocytes % 6.4 %; Neutrophils # 5.51 10^3/uL (1.8-7.7); Neutrophils % 55.4 %; Nucleated Red Blood Cells % 0 %; Platelet Count 249 10^3/cmm (130-400); Red Cell Distribution Width 13.7 % (12.1-15.1)
--- NOTE | 2022-07-05 11:40 | PM.HP ---
Providers/Chief Complaint Admitting Physician: Dr SHEA Hamlin Primary Care Provider: SUZANNE Willson Chief Complaint: R94.39, I25.10 History of Present Illness Anthony Sesay is a 71 year old male with a history of atherosclerotic heart diseas, high blood pressure, dyslipidemia is presented with complaints of chest pain. He is planned to have a spine surgery. Myocardial perfusion imaging revealed areas of fixed and reversible defects in the distribution of the right coronary artery and circumflex artery. To further evaluate his cardiac status, a cardiac catheterization was recommended. Patient is known to have coronary artery disease.? His most recent cardiac catheterization was on 11/25/2012.? At that time, he was found to have moderate disease in the ostium of the left anterior descending artery.? FFR of the lesion was found to be unremarkable.? It was opted to treat her medically at that time. Review of Systems Narrative: CONSTITUTIONAL: No fever or chills. [] EYES: No blurring of vision or other visual disturbances lately. [] ENT: No hoarseness of voice, auditory disturbances or sore throat. [] CARDIOVASCULAR: As mentioned above. [] RESPIRATORY: No significant cough. [] GASTROINTESTINAL: No hematemesis or melena. [] GENITOURINARY: No dysuria or hematuria. INTEGUMENTARY: No skin rashes or history of skin cancer. NEURO: No transient ischemic attacks or amaurosis. PSYCHIATRIC: No history of psychosis or major depression. HEMATOLOGIC: No bleeding disorders or significant anemia. ENDOCRINE: No history of polyuria or polydipsia. MUSCULOSKELETAL: Patient is scheduled for cervical spine surgery ALLERGY/IMMUNOLOGY: As mentioned above. Medications/Allergies Home Medications Medication Instructions Recorded Confirmed Last Taken Type blood sugar diagnostic (Blood #25 ea 07/02/19 07/04/22 Unknown Rx Glucose Test strips) blood-glucose meter (Blood Glucose #1 ea 07/02/19 07/04/22 Unknown Rx Monitoring kit) nitroglycerin 0.4 mg sublingual See Rx Instructions .Route 12/25/20 07/04/22 Unknown Rx tablet .COMPLEX #25 tabs aspirin 81 mg tablet,delayed 81 mg PO DAILY 02/13/21 07/04/22 07/05/22 07:30 History release (Curtis Low Dose Aspirin) naloxone 4 mg/actuation nasal 1 spray intranasal Q3M #2 ea 05/28/21 07/04/22 Unknown Rx spray (Narcan) oxycodone 15 mg tablet 15 mg PO TID 30 days #90 tabs 07/26/21 07/04/22 07/05/22 07:30 Rx docusate sodium 250 mg capsule 250 mg PO BID PRN constipation 30 09/25/21 07/04/22 Unknown Rx (DSS) days #60 caps finasteride 5 mg tablet 5 mg PO DAILY 30 days #30 tabs 09/25/21 07/04/22 07/05/22 07:30 Rx Antifungal (clotrimazole) 1 % 1 applic topical BID Tinea Pedis 4 10/17/21 07/04/22 Unknown Rx topical cream (clotrimazole) weeks #28 grams diabetic shoes #1 ea 10/17/21 07/04/22 Unknown Rx metoprolol succinate 25 mg 25 mg PO DAILY #90 tabs 11/05/21 07/04/22 07/05/22 07:30 Rx tablet,extended release 24 hr cyanocobalamin (vitamin B-12) 1,000 mcg IM .monthly 1 month #1 mL 12/27/21 07/04/22 07/05/22 07:30 Rx 1,000 mcg/mL injection solution cyclobenzaprine 10 mg tablet See Rx Instructions .Route 01/22/22 07/04/22 07/05/22 07:30 Rx .COMPLEX #120 tabs C-PAP with supplies, auto #1 ea 01/25/22 07/04/22 Unknown Rx titrating at 5-9 cm albuterol sulfate 2.5 mg/3 mL 2.5 mg (3 mL) inhalation QID PRN 03/08/22 07/04/22 07/05/22 07:30 Rx (0.083 %) solution for nebulization shortness of breath or wheezing #180 mL metformin 500 mg tablet See Rx Instructions .Route 03/20/22 07/04/22 07/04/22 10:30 Rx .COMPLEX #60 tabs levothyroxine 25 mcg tablet See Rx Instructions .Route 04/17/22 07/04/22 07/05/22 07:30 Rx .COMPLEX #90 tabs budesonide-formoterol HFA 160 2 puff inhalation BID #10.2 grams 04/22/22 07/04/22 07/05/22 07:30 Rx mcg-4.5 mcg/actuation aerosol inhaler (Symbicort) furosemide 40 mg tablet (Lasix) 40 mg PO DAILY #90 tabs 05/10/22 07/04/22 07/04/22 10:30 Rx potassium chloride 20 mEq 20 meq PO DAILY #90 tabs 05/10/22 07/04/22 07/05/22 07:30 Rx tablet,extended release memantine 10 mg tablet 10 mg PO BID 1 month #60 tabs 05/15/22 07/04/22 07/05/22 07:30 Rx ergocalciferol (vitamin D2) 1,250 See Rx Instructions .Route 06/14/22 07/04/22 07/05/22 07:30 Rx mcg (50,000 unit) capsule .COMPLEX #4 caps fenofibrate nanocrystallized 145 See Rx Instructions .Route 06/14/22 07/04/22 07/05/22 07:30 Rx mg tablet .COMPLEX #30 tabs fluoxetine 40 mg capsule See Rx Instructions .Route 06/14/22 07/04/22 07/05/22 07:30 Rx .COMPLEX #30 caps isosorbide mononitrate 60 mg See Rx Instructions .Route 06/14/22 07/04/22 07/05/22 07:30 Rx tablet,extended release 24 hr .COMPLEX #30 tabs omeprazole 40 mg capsule,delayed See Rx Instructions .Route 06/14/22 07/04/22 07/05/22 07:30 Rx release .COMPLEX #60 caps pravastatin 40 mg tablet See Rx Instructions .Route 06/14/22 07/04/22 07/05/22 07:30 Rx .COMPLEX #30 tabs tamsulosin 0.4 mg capsule See Rx Instructions .Route 06/14/22 07/04/22 07/05/22 07:30 Rx .COMPLEX #60 caps Allergies Allergy/AdvReac Type Severity Reaction Status Date / Time tramadol AdvReac ADR-Headach Verified 06/25/22 15:17 e PFSH Acute PFSH: Medical History Anxiety and depression At risk for falls Atherosclerosis of three affiliated coronary artery of three affiliated heart with angina pectoris Benign essential HTN Biceps muscle strain Bilateral shoulder pain BPH loc w urin obs/LUTS Cervical spine pain Cervical spondylosis without myelopathy Chest pain Chronic pain Chronic pain of right knee DDD (degenerative disc disease), lumbar Degenerative disc disease, cervical Diarrhea Diverticulitis Diverticulosis of colon Dyspnea on exertion Encounter for long-term use of opiate analgesic Encounter for long-term use of opiate analgesic Essential hypertension with goal blood pressure less than 130/80 Facet syndrome, lumbar History of kidney stones History of kidney stones HNP (herniated nucleus pulposus), cervical Hypertension Lumbosacral spondylosis without myelopathy Memory impairment of gradual onset Mixed hyperlipidemia Osteoarthritis of right knee Polyuria Renal calculus, left Restless legs syndrome with nocturnal myoclonus Right shoulder pain Sleep apnea Spondylosis without myelopathy or radiculopathy, 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 Tobacco use disorder Type 2 diabetes mellitus without complication, with long-term current use of insulin Urinary retention Vitamin B12 deficiency Vitamin B12 deficiency (dietary) anemia Surgical History H/O local excision of skin lesion Excision of skin cancer left side of face H/O neck surgery H/O repair of rotator cuff LEFT History of tooth extraction Hx of lithotripsy right mid urethral stone 07/26/2013 S/P left rotator cuff repair S/P spinal surgery CERVICAL SPINE S/P ureteral stent placement 2013 Family History Mother , at age 70 CAD (coronary artery disease) Cancer Lung disease Brother CAD (coronary artery disease), Onset Age: 40 Lung disease Family/Other Cancer Diabetes Hypertension Stroke Chronic kidney disease (CKD) Dementia Grandmother Cancer Stroke Grandfather Cancer Sister Diabetes Lung disease Brother Lung disease Sister Lung disease Mother CAD (coronary artery disease) Father No problems noted. Denies family history of Clotting disorder Suicide Anesthesia complication Bleeding disorder Social History Smoking and tobacco status: former smoker Second hand smoke exposure: No Alcohol intake: current Alcohol intake frequency: holidays/special occasions only Substance/Drug Use: never Lives independently: Yes Household members: children Marital status: / Current occupational status: retired Current gender identity: Male Special wei needs: No Agree to transfusion: Yes Vitals/I&O/Wt Last Vital Signs Temp 98.0 F 07/05/22 10:30 Pulse 78 07/05/22 10:30 Resp 18 07/05/22 10:30 BP 117/78 07/05/22 10:30 Pulse Ox 93 07/05/22 10:30 O2 Del Method Room Air 07/05/22 10:30 Weight last 48 hrs Weight 231 lb Physical Exam Narrative: GENERAL: The patient is alert and oriented times three. Not in any acute distress. [] HEENT: No significant pallor, icterus or lymphadenopathy.Oral cavity: There are no mucous membrane lesions. NECK: Trachea appears to be central. No masses noted. No JVD or thyromegaly appreciated. RESPIRATORY: Chest is symmetrical. No intercostals muscle retraction or any accessory muscle activation. There is no chest wall tenderness. Breath sounds are heard bilaterally. No rales or rhonchi heard. No evidence of any consolidation. [] BREASTS: Deferred. [] HEART: The heart sounds are normal. No S3 or S4. [No significant murmurs] []. No pericardial rub ABDOMEN: No vessel pulsations or distention. No tenderness. No organomegaly appreciated. Bowel sounds are normally heard. [] : Deferred. [] RECTAL: Deferred. [] LYMPHATIC: No lymphadenopathy noted in the neck. EXTREMITIES: No edema or cyanosis. No clubbing. MUSCULOSKELETAL: No acute joint deformities or swelling SKIN: There are no significant rashes or ecchymosis NEUROPSYCHIATRIC: The patient is alert and oriented x3. Appears to be in a good mood. No tremors or rigidity noted. [] Data 07/05/22 11:12 07/05/22 11:12 Other Labs: Laboratory Last Values WBC 10.0 10^3/uL (4.0-10.0) 07/05/22 11:12 RBC 4.20 10^6/uL (4.1-5.3) 07/05/22 11:12 Hgb 13.0 g/dL (11.7-16.6) 07/05/22 11:12 Hct 41.3 % (42.0-52.0) L 07/05/22 11:12 MCV 98.3 fl (80-94) H 07/05/22 11:12 MCH 31.0 pg (28.0-34.0) 07/05/22 11:12 MCHC 31.5 g/dL (30.0-36.0) 07/05/22 11:12 RDW 13.7 % (12.1-15.1) 07/05/22 11:12 Plt Count 249 10^3/cmm (130-400) 07/05/22 11:12 MPV 9.4 fL (7.4-10.4) 07/05/22 11:12 Neut % (Auto) 55.4 % 07/05/22 11:12 Lymph % (Auto) 32.0 % 07/05/22 11:12 [place] % (Auto) 6.4 % 07/05/22 11:12 Eos % (Auto) 4.3 % 07/05/22 11:12 Baso % (Auto) 0.5 % 07/05/22 11:12 Neut # (Auto) 5.51 10^3/uL (1.8-7.7) 07/05/22 11:12 Lymph # (Auto) 3.2 10^3/uL (0.8-4.8) 07/05/22 11:12 [place] # (Auto) 0.6 10^3/uL (0.2-0.9) 07/05/22 11:12 Eos # (Auto) 0.4 10^3/uL (0.0-0.8) 07/05/22 11:12 Baso # (Auto) 0.1 10^3/uL (0.0-0.1) 07/05/22 11:12 Nucleated RBC % (auto) 0 % 07/05/22 11:12 Nucleated RBCs # 0.0 /100WBC 07/05/22 11:12 Sodium 140 mmol/L (136-145) 07/05/22 11:12 Potassium 4.5 mmol/L (3.5-5.1) 07/05/22 11:12 Chloride 104 mmol/L (98-107) 07/05/22 11:12 Carbon Dioxide 24 mmol/L (22-29) 07/05/22 11:12 Anion Gap 16.5 (5-19) 07/05/22 11:12 BUN 27 mg/dL (8-23) H 07/05/22 11:12 Creatinine 1.7 mg/dL (0.7-1.2) H 07/05/22 11:12 GFR Calculation Not Reportable 07/05/22 11:12 Glucose 122 mg/dL (65-115) H 07/05/22 11:12 Calculated Osmolality 296 mOsm/kg (285-295) H 07/05/22 11:12 Calcium 9.4 mg/dL (8.5-10.5) 07/05/22 11:12 Other data: Echocardiogram on 06/04/2022 normal LV size with a diminished ejection fraction of around 50% ?(visual).? Diffuse hypokinesia of the left ventricle.mild left ?ventricular hypertrophy. Grade I/IV diastolic dysfunction ?(abnormal relaxation filling pattern), normal to mildly elevated ?filling pressures. ?Mildly increased left atrial size. ?Trace tricuspid valve regurgitation. ?Thickened aortic valve. ?Estimated pulmonary artery peak systolic pressure possibly ?normal.? Could not be calculated? properly because of the poor ?Doppler signals. ?There is no pericardial effusion. ?Technically difficult study because of the poor ultrasonic ?window. Myocardial perfusion imaging on 06/06/2022 1.? Myocardial perfusion imaging revealing area of moderate to moderately ?severe decreases uptake in the inferolateral, inferior, inferoseptal and apical ?segments there is some areas of reversibility in the inferolateral and apical ?regions suggesting myocardial scarring in the distribution of the left ?circumflex artery and right coronary artery with small areas of marilee-infarction ?ischemia mostly in the circumflex territory. ?2.? Diminished LV ejection fraction 42%. ?3.? Multiple wall motion abnormalities as mentioned above. ?4.? Mildly dilated LV cavity with an end-systolic volume of 71 mL. ?Compared to the study from 03/07/2021, the area of ischemia appears to be new A&P Assessment and plan (1) Abnormal myocardial perfusion study: As mentioned above (2) Type 2 diabetes mellitus without complication, with long-term current use of insulin: (3) Atherosclerosis of three affiliated coronary artery of three affiliated heart with angina pectoris: Last cardiac catheterization in 2012 and the results as mentioned above (4) Cervical spondylosis without myelopathy: (5) Mixed hyperlipidemia: (6) Essential hypertension with goal blood pressure less than 130/80: (7) CKD (chronic kidney disease): Patient carries an increased risk for contrast-induced nephropathy because of this. This was explained to the patient and the family in detail which they understood well. Plan He is scheduled for a cardiac catheterization today. The risks and benefits of the procedure were discussed with the patient in detail. The risk of bleeding, hematoma, vascular injury, myocardial infarction, myocardial perforation, malignant cardiac arrhythmias ,CVA, renal failure and other concomitant complications were explained in detail. Patient may require emergency dialysis after the procedure, in view of his chronic kidney disease. Patient and the family understood this well and consented to proceed. Based on the results of the above tests and the patient's clinical progress, further recommendations will be made. Attestations Medical Necessity Statement*: Patient may require 1 midnight stay Coding Level of Care Code 32012 Diagnoses Abnormal myocardial perfusion study R94.39 Type 2 diabetes mellitus without complication, with long-term current use of insulin E11.9; Z79.4 Atherosclerosis of three affiliated coronary artery of three affiliated heart with angina pectoris I25.119 Cervical spondylosis without myelopathy M47.812 Mixed hyperlipidemia E78.2 Essential hypertension with goal blood pressure less than 130/80 I10 CKD (chronic kidney disease) N18.9
[2022-07-05 11:41] LABS: Anion Gap 16.5 (5-19); Blood Urea Nitrogen 27 mg/dL (8-23); Calcium 9.4 mg/dL (8.5-10.5); Carbon Dioxide 24 mmol/L (22-29); Chloride 104 mmol/L (98-107); Glucose 122 mg/dL (65-115); Osmolality Calculated 296 mOsm/kg (285-295); Potassium 4.5 mmol/L (3.5-5.1); Sodium 140 mmol/L (136-145)
--- NOTE | 2022-07-05 11:45 | W.PM.OPSUD ---
Surgery/Procedure H&P Update DATE OF PROCEDURE: July 05, 2022 DATE H&P PERFORMED: 07/05/22 H&P UPDATE INFORMATION: I have reviewed H&P completed within last 30 days, I have examined patient prior to procedure and No changes to prior documentation PREOP DIAGNOSIS: ASHD PRIMARY INDICATION FOR PROCEDURE: Chest pain?abnormal Myocardial perfusion imaging/history of ASHD PLANNED PROCEDURE: Operation Date: 07/05/22 11:30 Proposed Procedures p [facility] 30618, R94.39, I25.10(Left) - Brooks Hamlin MD PATIENT REASSESSED PRIOR TO SEDATION, WITH NO CHANGE NOTED: Yes PHYSICAL EXAM: alert, oriented x 3, clear to auscultation bilaterally and regular rate & rhythm AIRWAY EVAL/ANESTHESIA PLAN: normal airway, see other exam findings, ASA III, Monitored Anesthesia, Local Anesthesia, Risks, benefits & alternatives of sedation and/or procedure discussed and Patient agrees to continue as planned
--- NOTE | 2022-07-05 13:34 | PC.NURSE ---
Patient arrived from [facility] via bed. Patient had sheath to right groin that has now been removed. No hematoma formation or oozing. Dressing is in place. Patient will continue bedrest and monitoring.
[2022-07-05] MEDS: albuterol 2.5 mg/3 mL Neb INHALATION ×2 (15:04→20:32)
[2022-07-05] MEDS: memantine 5 mg tablet 10 MG PO (17:09)
[2022-07-05] MEDS: tamsulosin 0.4 mg Capsule PEG-TUBE (17:09)
[2022-07-05] MEDS: oxyCODONE 5 mg IR Tab/Cap 15 MG PO (19:40)
[2022-07-05] MEDS: sodium chloride 0.9% 1,000 ML 75 ML IV (19:43)
[2022-07-05] MEDS: budesonide 0.5 mg/2 mL Neb INHALATION (20:32)
[2022-07-05] MEDS: cyclobenzaprine 10 mg Tablet PO (22:28)
[2022-07-06] VITALS: PULSE 73; RESP 18; TEMP 36.9; O2SAT 94
[2022-07-06 04:56] VITALS: BP 129/84; PULSE 70; RESP 18; TEMP 36.4; O2SAT 93
[2022-07-06 06:00] VITALS: PULSE 68
[2022-07-06 08:00] VITALS: PULSE 80; RESP 16; O2SAT 96
[2022-07-06 08:12] LABS: Blood Urea Nitrogen 25 mg/dL (8-23); Calcium 8.7 mg/dL (8.5-10.5); Carbon Dioxide 20 mmol/L (22-29); Chloride 105 mmol/L (98-107); Glucose 95 mg/dL (65-115); Osmolality Calculated 292 mOsm/kg (285-295); Sodium 139 mmol/L (136-145)
[2022-07-06 08:15] LABS: Anion Gap 18.6 (5-19); Potassium 4.6 mmol/L (3.5-5.1)
[2022-07-06] MEDS: albuterol 2.5 mg/3 mL Neb INHALATION (08:49)
[2022-07-06] MEDS: budesonide 0.5 mg/2 mL Neb INHALATION (08:49)
[2022-07-06] MEDS: potassium chloride ER 20 mEq Tablet PO (09:13)
[2022-07-06] MEDS: memantine 5 mg tablet 10 MG PO (09:13)
[2022-07-06] MEDS: isosorbide mononitrate ER 60 mg Tablet PO (09:13)
[2022-07-06] MEDS: tamsulosin 0.4 mg Capsule PEG-TUBE (09:14)
[2022-07-06] MEDS: metoprolol succinate ER (24 HR) 25 mg Tablet PO (09:14)
[2022-07-06] MEDS: pantoprazole DR 40 mg Tablet PO (09:14)
[2022-07-06] MEDS: levothyroxine 25 mcg Tablet PO (09:15)
[2022-07-06] MEDS: finasteride 5 mg Tablet PO (09:15)
[2022-07-06] MEDS: FUROsemide 40 mg Tablet PO (09:15)
[2022-07-06] MEDS: aspirin 81 mg EC Tablet PO (09:15)
[2022-07-06] MEDS: fenofibrate 145 mg Tablet PEG-TUBE (09:16)
[2022-07-06 09:19] VITALS: RESP 17
[2022-07-06] MEDS: oxyCODONE 5 mg IR Tab/Cap 15 MG PO (09:19)
[2022-07-06 10:11] VITALS: BP 129/84; PULSE 75; RESP 17; O2SAT 95
--- NOTE | 2022-07-06 10:29 | PC.NURSE ---
Patient discharged with daughter to home. IV removed and intact. Education given about holding metformin until July 08 and follow up with [facility] made. Patient verbalized understanding about all instructions and education. Patient discharged via wheelchair with daughter to [facility] entrance with deputy director of nursing.
== END 2022-07-06 10:20 | disposition home or self-care (01) ==
LOC: CSU 12:53
PROVIDERS: Admitting Provider Internal Medicine Cardiovascular Disease; PCP Nurse Practitioner Family; Visit Provider Internal Medicine Cardiovascular Disease
DX: I25.119 Atherosclerotic heart disease of native coronary artery with unspecified angina pectoris (principal); I12.9 Hypertensive chronic kidney disease with stage 1 through stage 4 chronic kidney disease, or unspecified chronic kidney disease; N18.9 Chronic kidney disease, unspecified; E11.22 Type 2 diabetes mellitus with diabetic chronic kidney disease; M47.812 Spondylosis without myelopathy or radiculopathy, cervical region; E78.2 Mixed hyperlipidemia; R94.39 Abnormal result of other cardiovascular function study; E66.9 Obesity, unspecified; Z68.38 Body mass index [BMI] 38.0-38.9, adult; Z79.4 Long term (current) use of insulin; Z87.891 Personal history of nicotine dependence
CPT/HCPCS: 36415; 80048; 85025; 93458; 94640; 94660; 96365; 96367; 99152; 99153; C1769; C1887; C1894; G0378; J1644; J2250; J3010; J7030; J7613; J7626; Q0163; Q9967

== ENCOUNTER → 2022-07-17 12:49 | Outpatient (BNVA) | payer MEDICARE, SELFPAY | PROVIDERS: PCP Nurse Practitioner Family; Visit Provider Nurse Practitioner Family | DX: I25.119 Atherosclerotic heart disease of native coronary artery with unspecified angina pectoris (principal); N17.9 Acute kidney failure, unspecified; N18.9 Chronic kidney disease, unspecified; I12.9 Hypertensive chronic kidney disease with stage 1 through stage 4 chronic kidney disease, or unspecified chronic kidney disease; E11.22 Type 2 diabetes mellitus with diabetic chronic kidney disease; Z79.84 Long term (current) use of oral hypoglycemic drugs; Z87.891 Personal history of nicotine dependence | CPT/HCPCS: 80048; 99214 ==

== ENCOUNTER → 2022-09-03 15:49 | Outpatient (BNVA) | payer MEDICARE, SELFPAY | PROVIDERS: PCP Nurse Practitioner Family; Visit Provider Specialist | DX: R41.89 Other symptoms and signs involving cognitive functions and awareness (principal) | CPT/HCPCS: 99213 ==

== ENCOUNTER → 2022-09-12 15:12 | Outpatient (BNVA) | payer MEDICARE, SELFPAY | PROVIDERS: PCP Nurse Practitioner Family; Visit Provider Internal Medicine Cardiovascular Disease | DX: R06.02 Shortness of breath (principal); R25.2 Cramp and spasm; I25.10 Atherosclerotic heart disease of native coronary artery without angina pectoris; E78.2 Mixed hyperlipidemia; I10 Essential (primary) hypertension; E11.9 Type 2 diabetes mellitus without complications; Z79.4 Long term (current) use of insulin | CPT/HCPCS: 36415; 80048; 83735; 83880; 99214 ==

== ENCOUNTER → 2022-10-22 14:06 | Outpatient (BNVA) | payer MEDICARE, SELFPAY | PROVIDERS: PCP Nurse Practitioner Family; Visit Provider Nurse Practitioner Family | DX: R10.9 Unspecified abdominal pain (principal) | CPT/HCPCS: 81000 ==

== ENCOUNTER → 2022-11-20 12:43 | Outpatient (BNVA) | payer MEDICARE, SELFPAY | PROVIDERS: PCP Nurse Practitioner Family; Visit Provider Internal Medicine Pulmonary Disease | DX: J82.83 Eosinophilic asthma (principal); Z77.120 Contact with and (suspected) exposure to mold (toxic); R06.02 Shortness of breath; G47.33 Obstructive sleep apnea (adult) (pediatric); Z87.891 Personal history of nicotine dependence; Z99.89 Dependence on other enabling machines and devices | CPT/HCPCS: 36415; 71046; 82785; 86003; 86331; 86606; 86609; 99204 ==

== ENCOUNTER 2023-01-08 15:50 | Emergency (ER) | payer MEDICARE, SELFPAY ==
[2023-01-08 15:50] VITALS: BP 120/73; PULSE 61; RESP 18; TEMP 36.8; O2SAT 94; BMI 36.6
--- NOTE | 2023-01-08 17:09 | XRR_ITS ---
PROCEDURE INFORMATION: Exam: XR Lumbosacral Spine Exam date and time: 01/08/2023 5:15 PM Age: 72 years old Clinical indication: Injury or trauma; Fall; Blunt trauma (contusions or hematomas); Additional info: Fall, fall in bathtub, lbp since TECHNIQUE: Imaging protocol: Radiologic exam of the lumbosacral spine. Views: 2 or 3 views. COMPARISON: CT abdomen pelvis w con* [id number] 06/01/2021 9:51 PM FINDINGS: Bones/joints: Grade 1 anterolisthesis L5 on S1. No acute lumbar spine fracture. Soft tissues: Unremarkable. Vasculature: Atherosclerotic disease. XR/XR lumbar spine 2-3V* [id number] IMPRESSION: No acute lumbar spine fracture.
[2023-01-08] MEDS: dexamethasone 10 mg/mL INJ IM (18:50)
[2023-01-08] MEDS: orphenadrine 30 mg/mL Inj 2 mL 60 MG IM (18:50)
[2023-01-08] MEDS: ketorolac 30 mg/mL INJ IM (18:50)
--- NOTE | 2023-01-08 18:57 | ED_ITS ---
HPI - Fall General: Chief Complaint: Fall Stated Complaint: fall. low back pain Time Seen by Provider: 01/08/23 15:51 Source: patient and family Mode of arrival: ambulatory (With cane-uses cane daily) Limitations: no limitations History of Present Illness: Patient presents emergency department today accompanied by family for evaluation treatment of right-sided low back pain. Patient states that on Friday he was in his shower when he slipped and fell. Patient states he fell back and impacted his low back/lower mid back on the floor. He presents today as he is still having pain in that area. He is not having any difficulty breathing. He denies hitting his head. Patient takes an 81 mg aspirin. Patient has been weightbearing and ambulatory since his fall and uses a cane at baseline. He has been urinating and having bowel movements without any changes in habit. Patient sees pain management and reports taking his prescribed oxycodone for pain. Review of Systems General: Reports: 10 or more systems reviewed and unremarkable except in HPI and below PFSH ED PFSH: Medical History Anxiety and depression At risk for falls Atherosclerosis of [place] coronary artery of [place] heart with angina pectoris Benign essential HTN Biceps muscle strain Bilateral shoulder pain BPH loc w urin obs/LUTS Cervical spine pain Cervical spondylosis without myelopathy Chest pain Chronic pain Chronic pain of right knee DDD (degenerative disc disease), lumbar Degenerative disc disease, cervical Diarrhea Diverticulitis Diverticulosis of colon Dyspnea on exertion Encounter for long-term use of opiate analgesic Encounter for long-term use of opiate analgesic Essential hypertension with goal blood pressure less than 130/80 Facet syndrome, lumbar History of kidney stones History of kidney stones HNP (herniated nucleus pulposus), cervical Hypertension Lumbosacral spondylosis without myelopathy Memory impairment of gradual onset Mixed hyperlipidemia Osteoarthritis of right knee Polyuria Renal calculus, left Restless legs syndrome with nocturnal myoclonus Right shoulder pain Sleep apnea Spondylosis without myelopathy or radiculopathy, 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 Tobacco use disorder Type 2 diabetes mellitus without complication, with long-term current use of insulin Urinary retention Vitamin B12 deficiency Vitamin B12 deficiency (dietary) anemia Surgical History H/O local excision of skin lesion Excision of skin cancer left side of face H/O neck surgery H/O repair of rotator cuff LEFT History of tooth extraction Hx of lithotripsy right mid urethral stone 07/26/2013 S/P left rotator cuff repair S/P spinal surgery CERVICAL SPINE S/P ureteral stent placement 2013 Family History Mother , at age 70 CAD (coronary artery disease) Cancer Lung disease Brother CAD (coronary artery disease), Onset Age: 40 Lung disease Family/Other Cancer Diabetes Hypertension Stroke Chronic kidney disease (CKD) Dementia Grandmother Cancer Stroke Grandfather Cancer Sister Diabetes Lung disease Brother Lung disease Sister Lung disease Mother CAD (coronary artery disease) Father No problems noted. Denies family history of Clotting disorder Suicide Anesthesia complication Bleeding disorder Social History Smoking and tobacco/nicotine status: former use of tobacco/nicotine Quit status (tobacco/nicotine): has quit using Year quit tobacco: 1975 Former quit date comment: 3 ppd X 8 years Second hand smoke exposure: No Alcohol intake: current Alcohol intake frequency: holidays/special occasions only Substance/Drug Use: never Lives independently: Yes Household members: children Marital status: / Current occupational status: retired Current gender identity: Male Special wei needs: No Agree to transfusion: Yes Physical Exam Const: COMMON NORMALS: no acute distress, patient oriented x3 and alert HENMT: COMMON NORMALS: normocephalic, atraumatic and hearing grossly normal bilaterally HEAD & SCALP: normocephalic and atraumatic Eye: COMMON NORMALS: Equal, round and reactive pupils present, EOMs intact bilaterally and conjunctivae normal CONJUNCTIVA: Yes conjunctivae normal PUPIL: Yes Equal, round and reactive pupils present Neck/C-Spine: COMMON NORMALS: full ROM and no JVD Lymph: LYMPHATIC: no lymphadenopathy noted Resp: COMMON NORMALS: normal respiratory effort, No retractions and No use of accessory muscles Cardio: COMMON NORMALS: no JVD and regular rate RATE: regular rate Back/Pelvis: OTHER: Patient has a very small and faint area of light yellow/light brown bruising noted to the right thoracolumbar region along the paravertebral musculature area. No specific tenderness along the vertebral column. No step-offs. Extremity: NARRATIVE EXTREMITY EXAM: Patient is independently ambulatory and weightbearing with cane assist which is his typical baseline. Patient is observed getting up and down from the bed independently. Neuro: COMMON NORMALS: patient oriented x3 SENSORIUM/ORIENTATION: Yes alert Psych: COMMON NORMALS: mental status grossly normal, Normal thought process present, cooperative and normal affect THOUGHT PROCESS: Normal thought process present Skin: COMMON NORMALS: no rashes or lesions noted and turgor normal GENERAL SKIN EXAM: no rashes or lesions noted and turgor normal Course Vital Signs: Vital signs: Vital Signs Temperature 98.2 F 01/08/23 15:50 Pulse Rate 61 01/08/23 15:50 Respiratory Rate 18 01/08/23 15:50 Blood Pressure 120/73 01/08/23 15:50 Pulse Oximetry 94 01/08/23 15:50 Oxygen Delivery Me thod Room Air 01/08/23 15:50 MDM - Fall Medical Decision Making Patient is x-rays negative for signs of any acute changes though he does have chronic degenerative changes noted throughout the his spine. Patient does have an area of specific tenderness associated with a resolving bruise just right of the thoracolumbar region. Since patient already takes oxycodone, explained to him that there is nothing stronger that I can prescribe him for home. However, we can supplement with anti-inflammatory medication-steroids in addition to the muscle relaxers he has at home. Patient was treated 1 time with Toradol, orphenadrine, and Decadron here in the emergency department given the time of night to help with pain and allow him to rest but, a Medrol Dosepak was provided for him to diamond picker and continue in the morning. I did request he have a follow- up appoint with his primary care doctor at the beginning of next week but, went over return precautions for which she needs to be seen and reevaluated sooner. Patient verbalized understanding and agreement to treatment plan. Differential Diagnosis Unlikely syncope, dislocation of shoulder region, fracture of wrist, compression fracture, concussion with loss of consciousness or concussion without loss of consciousness Lab Data Radiology Impressions Lumbar Spine X-Ray 01/08/23 17:09 IMPRESSION: No acute lumbar spine fracture. All radiology interpretation(s) finalized by discharge Discharge Plan Discharge Patient Disposition: Home Clinical Impression: Acute low back pain, Contusion of back Condition: Stable Prescriptions: New Medrol (Gigi) 4 mg tablets,dose pack See Rx Instructions .ROUTE .COMPLEX Qty: 21 0RF Rx Instructions: orally per package directions No Action aspirin [Curtis Low Dose Aspirin] 81 mg tablet,delayed release (DR/EC) 81 mg PO DAILY (DME) blood-glucose meter [Blood Glucose Monitoring] Kit See Rx Instructions .ROUTE .MEDSUPPLY Qty: 1 0RF Rx Instructions: As directed (DME) blood sugar diagnostic [Blood Glucose Test] Strip See Rx Instructions .ROUTE .MEDSUPPLY Qty: 25 11RF Rx Instructions: check blood sugar daily As directed magnesium hydroxide [Milk of Magnesia] 400 mg/5 mL suspension 15 ml PO DAILY PRN polyethylene glycol 3350 [Miralax] 17 gram/dose powder 4 g PO DAILY Narcan 4 mg/actuation spray,non-aerosol 1 spray intranasal Q3M PRN Rx Instructions: spray 1 dose into ONE nostril; alternate nostrils w each dose until help arrives cyclobenzaprine 10 mg tablet See Rx Instructions .ROUTE .COMPLEX Qty: 120 2RF Dose Instruction: TAKE ONE TABLET BY MOUTH TWICE DAILY AND TWO tablets AT BEDTIME NEEDED FOR MUSCLE SPASMS Rx Instructions: TAKE ONE TABLET BY MOUTH TWICE DAILY AND TWO tablets AT BEDTIME NEEDED FOR MUSCLE SPASMS memantine 10 mg tablet See Rx Instructions .ROUTE .COMPLEX Qty: 180 3RF Dose Instruction: TAKE ONE TABLET BY MOUTH TWICE DAILY. must have appointment FOR further refills. Rx Instructions: TAKE ONE TABLET BY MOUTH TWICE DAILY. finasteride 5 mg tablet 5 mg PO DAILY 30 Days Qty: 30 0RF (DME) diabetic shoes See Rx Instructions .Route .MEDSUPPLY Qty: 1 0RF Rx Instructions: As directed albuterol sulfate 2.5 mg /3 mL (0.083 %) solution for nebulization 2.5 mg inhalation QID PRN (Reason: shortness of breath or wheezing) Qty: 180 0RF albuterol sulfate [Ventolin HFA] 90 mcg/actuation HFA aerosol inhaler 1 inh inhalation QID PRN (Reason: shortness of breath or wheezing) Qty: 8.5 4RF budesonide-formoterol [Symbicort] 80-4.5 mcg/actuation HFA aerosol inhaler 2 puff inhalation BID Qty: 10.2 3RF ciprofloxacin HCl [Cipro] 500 mg tablet 500 mg PO BID 10 Days Qty: 20 0RF metronidazole 500 mg tablet 500 mg PO TID 10 Days Qty: 30 0RF nitroglycerin 0.4 mg tablet, sublingual See Rx Instructions .ROUTE .COMPLEX Qty: 25 3RF Dose Instruction: DISSOLVE ONE tablet UNDER THE TONGUE EVERY FIVE MINUTES NEEDED FOR CHEST pain; DO not exceed THREE doses PER episode Rx Instructions: DISSOLVE ONE tablet UNDER THE TONGUE EVERY FIVE MINUTES NEEDED FOR CHEST pain; DO not exceed THREE doses PER episode oxycodone 15 mg tablet 15 mg PO TID 30 Days Qty: 90 0RF (DME) C-PAP with supplies, auto titrating at 5-9 cm See Rx Instructions .Route .MEDSUPPLY Qty: 1 0RF Rx Instructions: As directed furosemide [Lasix] 40 mg tablet 40 mg PO DAILY Qty: 90 3RF potassium chloride 20 mEq tablet extended release 20 meq PO DAILY Qty: 90 3RF fluoxetine 40 mg capsule See Rx Instructions .ROUTE .COMPLEX Qty: 30 5RF Dose Instruction: TAKE ONE CAPSULE BY MOUTH EVERY MORNING Rx Instructions: TAKE ONE CAPSULE BY MOUTH EVERY MORNING fenofibrate nanocrystallized 145 mg tablet See Rx Instructions .ROUTE .COMPLEX Qty: 30 5RF Dose Instruction: TAKE ONE TABLET BY MOUTH EVERY DAY Rx Instructions: TAKE ONE TABLET BY MOUTH EVERY DAY pravastatin 40 mg tablet See Rx Instructions .ROUTE .COMPLEX Qty: 30 5RF Dose Instruction: TAKE ONE TABLET BY MOUTH ONCE daily Rx Instructions: TAKE ONE TABLET BY MOUTH ONCE daily isosorbide mononitrate 60 mg tablet extended release 24 hr See Rx Instructions .ROUTE .COMPLEX Qty: 30 5RF Dose Instruction: TAKE ONE TABLET BY MOUTH EVERY MORNING Rx Instructions: TAKE ONE TABLET BY MOUTH EVERY MORNING tamsulosin 0.4 mg capsule See Rx Instructions .ROUTE .COMPLEX Qty: 60 5RF Dose Instruction: TAKE ONE CAPSULE BY MOUTH TWICE DAILY Rx Instructions: TAKE ONE CAPSULE BY MOUTH TWICE DAILY omeprazole 40 mg capsule,delayed release(DR/EC) See Rx Instructions .ROUTE .COMPLEX Qty: 60 5RF Dose Instruction: TAKE ONE CAPSULE BY MOUTH TWICE DAILY Rx Instructions: TAKE ONE CAPSULE BY MOUTH TWICE DAILY metoprolol succinate 25 mg tablet extended release 24 hr See Rx Instructions .ROUTE .COMPLEX Qty: 90 3RF Dose Instruction: TAKE ONE TABLET BY MOUTH DAILY Rx Instructions: TAKE ONE TABLET BY MOUTH DAILY cyanocobalamin (vitamin B-12) 1,000 mcg/mL solution See Rx Instructions .ROUTE .COMPLEX Qty: 1 11RF Dose Instruction: inject 1ml INTRAMUSCULARLY monthly FOR ONE MONTH Rx Instructions: inject 1ml INTRAMUSCULARLY monthly FOR ONE MONTH ergocalciferol (vitamin D2) 1,250 mcg (50,000 unit) capsule See Rx Instructions .ROUTE .COMPLEX Qty: 4 2RF Dose Instruction: TAKE ONE CAPSULE BY MOUTH ONCE WEEKLY Rx Instructions: TAKE ONE CAPSULE BY MOUTH ONCE WEEKLY levothyroxine 25 mcg tablet See Rx Instructions .ROUTE .COMPLEX Qty: 90 0RF Dose Instruction: TAKE ONE TABLET BY MOUTH DAILY Rx Instructions: TAKE ONE TABLET BY MOUTH DAILY ropinirole 1 mg tablet See Rx Instructions .ROUTE .COMPLEX Qty: 30 2RF Dose Instruction: TAKE ONE TABLET BY MOUTH At Bedtime Rx Instructions: TAKE ONE TABLET BY MOUTH At Bedtime metformin 500 mg tablet See Rx Instructions .ROUTE .COMPLEX Qty: 60 2RF Hold Instructions: Resume on 07/08/22. May start the metformin on 08 July Dose Instruction: TAKE ONE TABLET BY MOUTH TWICE DAILY Rx Instructions: TAKE ONE TABLET BY MOUTH TWICE DAILY Discharge Orders: Discharge ED (Routine); Ordered 01/08/23 Ordered By: Tayla Diaz Referrals: Katy Barry FNP [Primary Care Provider] - Discharge Diet: Usual diet Discharge Activity: Increase activity as tolerated Patient Instructions: Contusion Activity Restrictions/Additional Instructions: X-ray shows no acute findings outside of your chronic, degenerative back issues. Your physical examination does show the areas of bruising in your low back musculature where you are tender. I recommend applying ice and/or heat for 15 to 20 minutes, multiple times throughout the day in addition to taking the Medrol Dosepak provided. Continue taking your pain medications as prescribed and monitor. Please follow-up with your primary care doctor at the beginning of next week for general recheck or, if you have any acute worsening or change in condition we do recommend being seen and reevaluated sooner. Coding Level of Care Code ED [employer] for Bentley Paez
[2023-01-08 20:08] VITALS: PULSE 91; O2SAT 91
== END 2023-01-08 20:13 | disposition home or self-care (01) ==
PROVIDERS: Emergency Provider Physician Assistant; PCP Nurse Practitioner Family
DX: M54.50 Low back pain, unspecified (principal); S30.0XXA Contusion of lower back and pelvis, initial encounter; Z79.82 Long term (current) use of aspirin; Z79.84 Long term (current) use of oral hypoglycemic drugs; Z87.891 Personal history of nicotine dependence; I25.10 Atherosclerotic heart disease of native coronary artery without angina pectoris; I10 Essential (primary) hypertension; E78.2 Mixed hyperlipidemia; E11.9 Type 2 diabetes mellitus without complications; W18.2XXA Fall in (into) shower or empty bathtub, initial encounter
CPT/HCPCS: 72100; 96372; 99284; 99285; J1100; J1885; J2360

== ENCOUNTER → 2023-01-09 11:06 | Outpatient (BNVA) | payer MEDICARE, SELFPAY | PROVIDERS: PCP Nurse Practitioner Family; Visit Provider Nurse Practitioner Family | DX: I10 Essential (primary) hypertension (principal); E55.9 Vitamin D deficiency, unspecified; E11.9 Type 2 diabetes mellitus without complications; Z79.4 Long term (current) use of insulin | CPT/HCPCS: 80053; 80061; 82306; 82607; 83036; 83735; 84443; 85025 ==

== ENCOUNTER → 2023-02-04 11:11 | Outpatient (BNVA) | payer MEDICARE, SELFPAY | PROVIDERS: PCP Nurse Practitioner Family; Visit Provider Nurse Practitioner Family | DX: N17.9 Acute kidney failure, unspecified (principal); N18.9 Chronic kidney disease, unspecified | CPT/HCPCS: 80048 ==

== ENCOUNTER → 2023-04-07 12:15 | Outpatient (BNVA) | payer MEDICARE, SELFPAY | PROVIDERS: PCP Nurse Practitioner Family; Visit Provider Nurse Practitioner Family | DX: M25.531 Pain in right wrist (principal) | CPT/HCPCS: 73110 ==

== ENCOUNTER → 2023-04-15 12:33 | Outpatient (BNVA) | payer MEDICARE, SELFPAY | PROVIDERS: PCP Nurse Practitioner Family; Visit Provider Internal Medicine Cardiovascular Disease | DX: I25.119 Atherosclerotic heart disease of native coronary artery with unspecified angina pectoris (principal); E78.2 Mixed hyperlipidemia; N20.0 Calculus of kidney; G43.711 Chronic migraine without aura, intractable, with status migrainosus; G47.33 Obstructive sleep apnea (adult) (pediatric); I12.9 Hypertensive chronic kidney disease with stage 1 through stage 4 chronic kidney disease, or unspecified chronic kidney disease; N18.9 Chronic kidney disease, unspecified; Z87.891 Personal history of nicotine dependence | CPT/HCPCS: 99214 ==

== ENCOUNTER 2023-04-16 15:37 | Outpatient (CLI) | payer MEDICARE, SELFPAY ==
--- NOTE | 2023-04-16 16:00 | MR_ITS ---
WS: [id number] MRI LUMBAR SPINE NONCONTRAST HISTORY: M54.50 - Low back pain, unspecified COMPARISON: 09/19/2011 TECHNIQUE: Sagittal and axial multisequence imaging is submitted. Prior anterior cervical fusion at C5-6. Mild anterior wedging of T2 and T3. Indeterminant compression fractures. Slight increase in the lower lumbar lordosis. L5 anterolisthesis by 4.3 mm. Disc bases are mildly josef iccated throughout. No fracture. No marrow edema. Disc spaces and vertebral body heights are well-preserved. Conus terminates normally at L1-2 disc level. L1-L2: Mild facet arthritis. L2-L3: Mild annular disc bulging with ligamentum flavum and facet arthritis. No stenosis. L3-L4: Mild annular disc bulging with ligamentum flavum and facet arthritis. Mild encroachment upon t he foramina. No significant stenosis. L4-L5: Mild annular disc bulging. Very shallow LEFT foraminal disc protrusion. Moderate RIGHT and sev ere LEFT facet joint arthritis. Encroachment upon the thecal sac. Mild central, bilateral subarticula r recess and LEFT foraminal narrowing. Greatest encroachment upon the traversing LEFT L5 nerve root. L5-S1: Annular disc bulging with a more focal RIGHT foraminal disc protrusion. There is mild disc con tact on the RIGHT S1 nerve root. Moderate bilateral facet joint arthritis. Mild bilateral foraminal n arrowing, RIGHT greater than LEFT. Superior pole RIGHT renal cyst measures 3.8 cm. IMPRESSION: 1. Grade 1 anterolisthesis of L5 by 4.3 mm. Slight progression since the prior study. 2. Mild bilateral foraminal stenosis at L5-S1, RIGHT greater than LEFT. Disc contact on the RIGHT S1 nerve root. 3. Shallow LEFT foraminal disc protrusion at L4-5. Mild central, bilateral subarticular and LEFT for aminal stenosis. There is greatest disc encroachment upon the LEFT L5 nerve root. 4. Multilevel facet joint arthropathy, most significant at L4-5 and greatest on the LEFT. 5. CT scan from 06/01/2021 is reviewed. There is a unilateral RIGHT L5 pars defect. This is at the le myrna of the L5 anterolisthesis.
== END 2023-04-16 15:38 | disposition home or self-care (01) ==
LOC: RAD 15:37
PROVIDERS: PCP Nurse Practitioner Family; Visit Provider Nurse Practitioner Family
DX: M48.07 Spinal stenosis, lumbosacral region (principal); M47.816 Spondylosis without myelopathy or radiculopathy, lumbar region
CPT/HCPCS: 72148

== ENCOUNTER → 2023-08-21 11:35 | Outpatient (BNVA) | payer MEDICARE, SELFPAY | PROVIDERS: PCP Nurse Practitioner Family; Visit Provider Nurse Practitioner Family | DX: E11.9 Type 2 diabetes mellitus without complications (principal); Z79.4 Long term (current) use of insulin; Z12.5 Encounter for screening for malignant neoplasm of prostate; E55.9 Vitamin D deficiency, unspecified; R10.32 Left lower quadrant pain; K57.92 Diverticulitis of intestine, part unspecified, without perforation or abscess without bleeding | CPT/HCPCS: 80053; 80061; 81000; 82306; 82607; 84443; 85025; G0103 ==

== ENCOUNTER → 2023-08-26 12:03 | Outpatient (BNVA) | payer MEDICARE, SELFPAY | PROVIDERS: PCP Nurse Practitioner Family; Visit Provider Nurse Practitioner Family | DX: N39.0 Urinary tract infection, site not specified (principal); R10.32 Left lower quadrant pain; Z79.4 Long term (current) use of insulin; E11.9 Type 2 diabetes mellitus without complications | CPT/HCPCS: 80053; 81000; 83036; 85025 ==

== ENCOUNTER → 2023-08-27 15:55 | Outpatient (CLI) | payer MEDICARE, SELFPAY ==
[2023-08-27] MEDS: iohexol 350 mg/mL 500 mL Btl (per mL) PO (16:48)
--- NOTE | 2023-08-27 17:00 | CTR_ITS ---
PROCEDURE INFORMATION: Exam: CT Abdomen And Pelvis With Contrast Exam date and time: 08/27/2023 5:08 PM Age: 73 years old Clinical indication: Abdominal pain; Localized; Left lower quadrant (llq); Patient HX: Left lower quadrant pain with constipation and dark stools x 5 weeks. ; Additional info: R10.32 - left lower quadrant pain TECHNIQUE: Imaging protocol: Computed tomography of the abdomen and pelvis with contrast. Radiation optimization: All CT scans at this facility use at least one of these dose optimization techniques: automated exposure control; mA and/or kV adjustment per patient size (includes targeted exams where dose is matched to clinical indication); or iterative reconstruction. Contrast material: OMNI 350; Contrast volume: 100 ml; Contrast route: INTRAVENOUS (IV); COMPARISON: CT abdomen pelvis w con* [id number] 06/01/2021 9:51 PM RADIATION DOSE METRICS: Total DLP (mGy-cm): 924.07 FINDINGS: Liver: The liver is unremarkable. Gallbladder and bile ducts: Gallbladder is small and otherwise normal in appearance. No biliary ductal dilation. Pancreas: Mild fatty atrophy of the pancreas. No pancreatic ductal dilation. Spleen: The spleen is unremarkable. Adrenal glands: The adrenal glands are unremarkable. Kidneys and ureters: Mild bilateral renal atrophy. Right renal cyst measuring up to 5.0 cm. No hydronephrosis or hydroureter. No large renal stones. Stomach and bowel: Moderate colonic diverticulosis. No distinct CT evidence of focal acute diverticulitis. A very mild acute diverticulitis of the sigmoid or descending colon cannot be fully excluded. Nonobstructive bowel-gas pattern. Appendix: The appendix is normal. Intraperitoneal space: No significant free fluid in the abdomen or pelvis. Vasculature: Scattered calcific disease of the abdominal aorta and its major branches. No abdominal aortic aneurysm. Lymph nodes: No suspicious lymphadenopathy. Urinary bladder: Urinary bladder is within normal limits. Reproductive: Visualized reproductive structures are within normal limits. Bones/joints: Discogenic degenerative changes at L5-S1. No acute osseous findings. Soft tissues: Small left fat containing inguinal hernia. CT/CT abdomen pelvis w con* [id number] IMPRESSION: 1. Moderate colonic diverticulosis. No distinct CT evidence of focal acute diverticulitis. A very mild acute diverticulitis of the sigmoid or descending colon cannot be fully excluded. 2. Otherwise negative study. COMMENTS: Consistent with the [employer]'s Incidental Findings Committee white paper (J Am Beatrice Radiol 2018): Any incidental renal lesion less than 1 cm or classified as too small to characterize, or any incidental cystic renal lesion characterized as simple-appearing, is likely benign. No follow-up imaging is recommended for these lesions per consensus recommendations based on imaging criteria.
[2023-08-27] MEDS: iohexol 350 mg/mL 500 mL Btl (per mL) IV (17:14)
== END | disposition home or self-care (01) ==
LOC: RAD 15:55
PROVIDERS: PCP Nurse Practitioner Family; Visit Provider Nurse Practitioner Family
DX: K57.30 Diverticulosis of large intestine without perforation or abscess without bleeding (principal); N28.1 Cyst of kidney, acquired; I70.0 Atherosclerosis of aorta
CPT/HCPCS: 74177; Q9967

== ENCOUNTER → 2023-10-03 09:48 | Outpatient (BNVA) | payer MEDICARE, SELFPAY | PROVIDERS: PCP Nurse Practitioner Family; Visit Provider Nurse Practitioner Family | DX: K57.92 Diverticulitis of intestine, part unspecified, without perforation or abscess without bleeding (principal) | CPT/HCPCS: 80053; 85025 ==

== ENCOUNTER → 2023-10-14 12:07 | Outpatient (BNVA) | payer MEDICARE, SELFPAY | PROVIDERS: PCP Nurse Practitioner Family; Visit Provider Internal Medicine Cardiovascular Disease | DX: I12.9 Hypertensive chronic kidney disease with stage 1 through stage 4 chronic kidney disease, or unspecified chronic kidney disease (principal); N18.9 Chronic kidney disease, unspecified; I25.119 Atherosclerotic heart disease of native coronary artery with unspecified angina pectoris; E11.22 Type 2 diabetes mellitus with diabetic chronic kidney disease; Z79.4 Long term (current) use of insulin; F17.200 Nicotine dependence, unspecified, uncomplicated; E78.2 Mixed hyperlipidemia | CPT/HCPCS: 99214 ==

== ENCOUNTER 2023-10-28 09:24 | Outpatient (CLI) | payer MEDICARE, SELFPAY ==
--- NOTE | 2023-10-28 09:30 | CT_ITS ---
WS: [id number] CT ABDOMEN AND PELVIS WITH CONTRAST HISTORY: R10.32 - Left lower quadrant pain TECHNIQUE: Imaging performed of the abdomen and pelvis with IV contrast. Single phase imaging of the abdomen. Coronal and sagittal reformats are submitted. All CT scans at [facility] use at [address] one of these dose optimization techniques: automated exposure control; mA and/or kV adjustment per patient size (includes targeted exams where dose is matched to clinical indication); or iterative re construction. IV CONTRAST: Omnipaque 350; 100 mL IV. Oral contrast: Yes. DLP: 1000.74 mGy.cm COMPARISON: 08/27/2023 Lower thorax: Lung bases are clear. Heart is normal size. Small hiatal hernia with retained oral cont rast. Liver/biliary system: Normal size with no intrahepatic dilatation. Gallbladder: Normal. No gallstones or wall thickening. No pericholecystic fluid. Pancreas: Normal size pancreas and pancreatic duct. No adjacent inflammation. Spleen: Normal size spleen. No mass or infarct. Adrenal glands: Normal. Right kidney: Normal size RIGHT kidney. Exophytic cyst from the superior pole measures 4.6 cm in maxi mum diameter. No solid mass. No obstruction or hydronephrosis. Left kidney: Normal size kidney with no mass or hydronephrosis. Normal size ureter. Aorta: Mild atherosclerosis with no aneurysm. Lymphadenopathy: None. Free fluid: None. GI tract: Large amount of food products within the stomach. There is also oral contrast within the sm all bowel. There is no obstruction. Normal appendix. Moderate diverticular burden in the descending a nd sigmoid colon. There is mild circumferential wall thickening and slight narrowing of the lumen. Ve ry mild inflammatory type changes in the descending colon may indicate a mild acute diverticulitis. T here is no abscess or free fluid. Abdominal wall: Unremarkable abdominal wall. No hernia. Pelvis: Patent bilateral inguinal canals containing fat only. Urinary bladder is negative. Bones: Slight anterolisthesis of L5. Bilateral femoral head osteonecrosis. CT/CT abdomen pelvis w con* [id number] IMPRESSION: 1. Moderate descending and sigmoid colon diverticulosis. Mild circumferential wall thickening in the descending colon and mild adjacent pericolonic stranding . Minimal diverticulitis in the descending colon should be considered. There is no abscess or free fluid. 2. RIGHT renal cyst. 3. Mild atherosclerosis aorta. 4. No ascites or adenopathy. 5. Bilateral femoral head osteonecrosis.
[2023-10-28] MEDS: iohexol 350 mg/mL 500 mL Btl (per mL) PO (09:32)
[2023-10-28] MEDS: iohexol 350 mg/mL 500 mL Btl (per mL) IV (10:22)
== END 2023-10-28 09:25 | disposition home or self-care (01) ==
LOC: RAD 09:25
PROVIDERS: PCP Nurse Practitioner Family; Visit Provider Nurse Practitioner Family
DX: R10.32 Left lower quadrant pain (principal); N28.1 Cyst of kidney, acquired; I70.0 Atherosclerosis of aorta; K57.30 Diverticulosis of large intestine without perforation or abscess without bleeding; K57.32 Diverticulitis of large intestine without perforation or abscess without bleeding; K63.89 Other specified diseases of intestine; M87.9 Osteonecrosis, unspecified
CPT/HCPCS: 74177; 80053; 85025; Q9967

== ENCOUNTER → 2023-11-11 08:00 | Outpatient (BNVA) | payer MEDICARE, SELFPAY | PROVIDERS: PCP Nurse Practitioner Family; Visit Provider Internal Medicine Critical Care Medicine | DX: R06.00 Dyspnea, unspecified (principal); J98.4 Other disorders of lung; J44.9 Chronic obstructive pulmonary disease, unspecified; Z77.128 Contact with and (suspected) exposure to other hazards in the physical environment; Z59.19 Other inadequate housing; Z77.120 Contact with and (suspected) exposure to mold (toxic); J82.83 Eosinophilic asthma; R40.0 Somnolence; J01.00 Acute maxillary sinusitis, unspecified; G47.33 Obstructive sleep apnea (adult) (pediatric); E66.09 Other obesity due to excess calories; Z68.38 Body mass index [BMI] 38.0-38.9, adult; R53.81 Other malaise; Z99.89 Dependence on other enabling machines and devices; Z71.82 Exercise counseling; Z77.22 Contact with and (suspected) exposure to environmental tobacco smoke (acute) (chronic) | CPT/HCPCS: 99215 ==

== ENCOUNTER → 2023-11-26 10:40 | Outpatient (BNVA) | payer MEDICARE, SELFPAY | PROVIDERS: PCP Nurse Practitioner Family; Referring Provider Nurse Practitioner Family; Visit Provider Surgery | DX: K59.00 Constipation, unspecified (principal); K57.92 Diverticulitis of intestine, part unspecified, without perforation or abscess without bleeding | CPT/HCPCS: 99204 ==

== ENCOUNTER → 2023-12-08 15:17 | Outpatient (BNVA) | payer MEDICARE, SELFPAY | PROVIDERS: PCP Nurse Practitioner Family; Visit Provider Nurse Practitioner Family | DX: Z96.698 Presence of other orthopedic joint implants (principal); R94.2 Abnormal results of pulmonary function studies; R05.9 Cough, unspecified | CPT/HCPCS: 71046 ==

== ENCOUNTER 2024-01-06 08:26 | Outpatient (CLI) | payer MEDICARE, SELFPAY ==
--- NOTE | 2024-01-06 08:32 | CTR_ITS ---
PROCEDURE INFORMATION: Exam: CT Chest Without Contrast; Diagnostic Exam date and time: 01/06/2024 9:33 AM Age: 73 years old Clinical indication: Dyspnea and shortness of breath; Additional info: Worsening gloria with physical exam consistent possible ild TECHNIQUE: Imaging protocol: Diagnostic computed tomography of the chest without contrast. Radiation optimization: All CT scans at this facility use at least one of these dose optimization techniques: automated exposure control; mA and/or kV adjustment per patient size (includes targeted exams where dose is matched to clinical indication); or iterative reconstruction. COMPARISON: CR XR chest 2V* [id number] 12/08/2023 3:21 PM RADIATION DOSE METRICS: Total DLP (mGy-cm): 683.42 FINDINGS: Lungs: There is mild dependent subsegmental atelectasis in the lung bases. There is no consolidation. Trachea and bronchi are normal. Pleural spaces: There is no pleural effusion or pneumothorax. Heart: Heart size is normal. There is no pericardial effusion. Coronary arteries: There is moderate coronary artery calcification. Lymph nodes: There is no mediastinal or hilar lymphadenopathy. Vasculature: There is mild aortic atherosclerotic disease. Intraperitoneal space: Visible structures in the upper abdomen are unremarkable. Bones/joints: Bones are unremarkable. Soft tissues: Mild bilateral gynecomastia. CT/CT chest wo con [id number] IMPRESSION: 1. No sign of significant lung disease. 2. Incidental findings above.
[2024-01-06 08:58] VITALS: PULSE 53; RESP 18; O2SAT 96
[2024-01-06] MEDS: albuterol 2.5 mg/3 mL Neb INHALATION (08:58)
[2024-01-06 09:21] LABS: ABG PCO2 38.8 mmHg (35-45); ABG PH Result 7.39 (7.35-7.45); Alveolar-Arterial Oxygen Gradi 2.8 mmHg (5-10); Arterial Blood Gas Hematocrit 42.2 % (42-52); Blood Gas Allen Test Pos; Blood Gas Operator Identificat MBB; Blood Gas Sample Site Radial, left; Blood Gas Sample Type Arterial; HCO3 ABG 23.7 mmol/L (22-26); HGB O2 Sat 94.4 % (95-100); Ionized Calcium Level - ABG 1.2 mmol/L (1.1-1.4); Methemoglobin 1.2 % (0.4-1.5); Oxygen Device ROOM AIR; Oxygen Saturation ABG 96.5; PO2 ABG 80.2 mmHg (80.0-100.0); PO2 FiO2 Ratio Arterial Blood 381; Total Hemoglobin 13.8 g/dL (14-18)
== END 2024-01-06 08:27 | disposition home or self-care (01) ==
LOC: RT 08:29
PROVIDERS: PCP Nurse Practitioner Family; Visit Provider Internal Medicine Critical Care Medicine
DX: R06.00 Dyspnea, unspecified (principal); J98.4 Other disorders of lung; J44.9 Chronic obstructive pulmonary disease, unspecified; I25.84 Coronary atherosclerosis due to calcified coronary lesion; R94.2 Abnormal results of pulmonary function studies; Z77.120 Contact with and (suspected) exposure to mold (toxic); Z77.128 Contact with and (suspected) exposure to other hazards in the physical environment; Z59.19 Other inadequate housing
CPT/HCPCS: 36600; 71250; 80051; 82330; 82805; 94060; 94726; 94729

== ENCOUNTER 2024-01-20 07:00 | Day surgery (SDC) | payer MEDICARE, SELFPAY ==
--- NOTE | 2024-01-20 06:09 | W.PM.OPSFHP ---
Same Day Surgery H&P Indication for Procedure/HPI DATE OF PROCEDURE: January 20, 2024 CHIEF COMPLAINT/INDICATIONFOR SURGICAL PROCEDURE: need for screening colonoscopy PREOP DIAGNOSIS: need for screening colonoscopy PLANNED PROCEDURE: Operation Date: 01/20/24 08:20 Proposed Procedures p Colonoscopy 09649, G0105, K57.92(Not Applicable) - Dalton Hillman MD Medications/Allergies* Home Medications Medication Instructions Recorded Confirmed Type aspirin 81 mg tablet,delayed 81 mg PO DAILY 02/13/21 01/14/24 History release (Curtis Low Dose Aspirin) naloxone 4 mg/actuation nasal 1 spray intranasal Q3M PRN Opiate 07/17/22 01/14/24 History spray (Narcan) Reversal magnesium hydroxide 400 mg/5 mL 15 ml PO DAILY PRN Heartburn 09/12/22 01/14/24 History oral suspension (Milk of Magnesia) polyethylene glycol 3350 17 4 g PO DAILY PRN Constipation 04/15/23 01/14/24 History gram/dose oral powder (Miralax) cyanocobalamin (vitamin B-12) 1,000 mcg IM .MONTHLY 12/18/23 01/14/24 History 1,000 mcg/mL injection solution fenofibrate nanocrystallized 145 145 mg PO DAILY 12/18/23 01/14/24 History mg tablet fluoxetine 40 mg capsule 40 mg PO DAILY 12/18/23 01/14/24 History isosorbide mononitrate 60 mg 60 mg PO DAILY 12/18/23 01/14/24 History tablet,extended release 24 hr memantine 10 mg tablet 10 mg PO BID 12/18/23 01/14/24 History metoprolol succinate 25 mg 25 mg PO DAILY 12/18/23 01/14/24 History tablet,extended release 24 hr nitroglycerin 0.4 mg sublingual 0.4 mg sublingual DIRECTED PRN 12/18/23 01/14/24 History tablet Chest Pain omeprazole 40 mg capsule,delayed 40 mg PO BID 12/18/23 01/14/24 History release pravastatin 40 mg tablet 40 mg PO DAILY 12/18/23 01/14/24 History ropinirole 2 mg tablet 2 mg PO BEDTIME 12/18/23 01/14/24 History tamsulosin 0.4 mg capsule 0.4 mg PO BID 12/18/23 01/14/24 History casanthranol-docusate sodium 30 1 cap PO DAILY PRN Constipation 01/14/24 01/14/24 History mg-100 mg capsule ergocalciferol (vitamin D2) 1,250 1,250 mcg PO .WKLY 01/14/24 01/14/24 History mcg (50,000 unit) capsule levothyroxine 25 mcg tablet 25 mcg PO DAILY 01/14/24 01/14/24 History oxycodone 15 mg tablet 15 mg PO TID PRN Pain 01/14/24 01/14/24 History Allergies/Adverse Reactions Allergy/AdvReac Type Severity Reaction Status Date / Time tramadol AdvReac ADR-Headach Verified 12/18/23 14:55 e Pertinent History/Comorbid Conditions* Medical History (Updated 11/11/23 @ 09:20 by Ashley Pineda MD) Polyuria Status post extracorporeal shock wave therapy BPH loc w urin obs/LUTS Hypertension Dyspnea on exertion History of kidney stones Renal calculus, left Benign essential HTN Diarrhea Chest pain Vitamin B12 deficiency (dietary) anemia Right shoulder pain Biceps muscle strain Diverticulitis Vitamin B12 deficiency Diverticulosis of colon History of kidney stones At risk for falls HNP (herniated nucleus pulposus), cervical Restless legs syndrome with nocturnal myoclonus Sleep apnea Anxiety and depression Essential hypertension with goal blood pressure less than 130/80 Memory impairment of gradual onset Mixed hyperlipidemia Urinary retention Type 2 diabetes mellitus without complication, with long-term current use of insulin Encounter for long-term use of opiate analgesic Spondylosis without myelopathy or radiculopathy, lumbar region Cervical spondylosis without myelopathy Atherosclerosis of [place] coronary artery of [place] heart with angina pectoris Cervical spine pain Chronic pain Facet syndrome, lumbar Lumbosacral spondylosis without myelopathy Osteoarthritis of right knee Chronic pain of right knee Bilateral shoulder pain Tobacco use disorder Degenerative disc disease, cervical DDD (degenerative disc disease), lumbar Encounter for long-term use of opiate analgesic Surgical History (Updated 06/29/21 @ 16:51 by SUZANNE Willson) H/O neck surgery H/O repair of rotator cuff LEFT History of tooth extraction Hx of lithotripsy right mid urethral stone 07/26/2013 S/P ureteral stent placement LEFT 2013 H/O local excision of skin lesion Excision of skin cancer left side of face S/P left rotator cuff repair S/P spinal surgery CERVICAL SPINE Family History (Updated 02/13/21 @ 11:43 by Radha Hsu RN) Father Mother Mother, at age 70 Diabetes Family/Other Sister CAD (coronary artery disease) Mother Brother, Onset Age: 40 Mother Dementia Family/Other Chronic kidney disease (CKD) Family/Other Lung disease Mother Brother Sister Brother Sister Cancer Mother Family/Other Grandmother Grandfather Hypertension Family/Other Stroke Family/Other Grandmother Denies family history of Clotting disorder Suicide Anesthesia complication Bleeding disorder Social History Smoking and tobacco/nicotine status: never used tobacco/nicotine Quit status (tobacco/nicotine): has quit using Year quit tobacco: 1975 Former quit date comment: 3 ppd X 8 years Second hand smoke exposure: No Alcohol intake: current Alcohol intake frequency: holidays/special occasions only Substance/Drug Use: never Lives independently: Yes Household members: children Marital status: / Current occupational status: retired Current gender identity: Male Special wei needs: No Agree to transfusion: Yes Pertinent Exam Findings alert, oriented x 3, clear to auscultation bilaterally and regular rate & rhythm Recommendations Surgery/Procedure today Coding Level of Care Code Acute Code for Maggyg Fwd
[2024-01-20 07:43] VITALS: BP 110/71; PULSE 62; RESP 18; TEMP 36.3; O2SAT 94; BMI 37.9
[2024-01-20] MEDS: sodium chloride 0.9% 1,000 ML 30 ML IV (07:51)
--- NOTE | 2024-01-20 08:29 | ANES.PREANE2 ---
Pre-Anesthetic Assessment Height/Weight: Height 5 ft 5 in Weight 228 lb Temp Pulse Resp BP Pulse Ox O2 Del Method 97.3 F L 62 18 110/71 94 Room Air 01/20/24 07:43 01/20/24 07:43 01/20/24 07:43 01/20/24 07:43 01/20/24 07:43 01/20/24 07:43 Preop Diagnosis: need for screening colonoscopy Operation Date: 01/20/24 08:20 Proposed Procedures p Colonoscopy 57048, G0105, K57.92(Not Applicable) - Dalton Hillman MD Last intake: Intake Last Liquid Date 01/19/24 Last Liquid Time 23:00 Last Solid Date 01/18/24 Last Solid Time 18:00 Social Tobacco and No alcohol Exam alert, oriented x 3 and regular rate & rhythm diminished breath sounds bilaterally Airway Submandibular: within normal limits Cervical ROM: within normal limits Mallampati: Class III Comments: Comments: multiple missing teeth,denies any loose Anesthetic Plan ASA status: 4 Anesthesia: MAC Other: No prior issues with anesthesia Completed bowel prep Patient has COPD/emphysema. Recent PFTs. On chronic inhalers. 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 Plan for MAC anesthetic Medications/Allergies Home Medications Medication Instructions Recorded Confirmed Last Taken Type blood sugar diagnostic (Blood #25 ea 07/02/19 12/29/23 Unknown Rx Glucose Test strips) blood-glucose meter (Blood Glucose #1 ea 07/02/19 12/29/23 Unknown Rx Monitoring kit) aspirin 81 mg tablet,delayed 81 mg PO DAILY 02/13/21 01/14/24 01/19/24 History release (Curtis Low Dose Aspirin) diabetic shoes #1 ea 10/17/21 12/29/23 Unknown Rx C-PAP with supplies, auto #1 ea 01/25/22 12/29/23 Unknown Rx titrating at 5-9 cm albuterol sulfate 2.5 mg/3 mL 2.5 mg (3 mL) inhalation QID PRN 03/08/22 01/14/24 1 Week Ago Rx (0.083 %) solution for nebulization shortness of breath or wheezing ~01/13/24 #180 mL naloxone 4 mg/actuation nasal 1 spray intranasal Q3M PRN Opiate 07/17/22 01/14/24 Unknown History spray (Narcan) Reversal magnesium hydroxide 400 mg/5 mL 15 ml PO DAILY PRN Heartburn 09/12/22 01/20/24 2 Weeks Ago History oral suspension (Milk of Magnesia) ~01/06/24 polyethylene glycol 3350 17 4 g PO DAILY PRN Constipation 04/15/23 01/14/24 12/16/23 History gram/dose oral powder (Miralax) albuterol sulfate 90 mcg/actuation 1 inh inhalation QID PRN shortness 11/14/23 01/14/24 1 Week Ago Rx aerosol inhaler (Ventolin HFA) of breath or wheezing #8.5 grams ~01/13/24 budesonide-formoterol HFA 80 2 puff inhalation BID #10.2 grams 11/14/23 01/14/24 1 Week Ago Rx mcg-4.5 mcg/actuation aerosol ~01/13/24 inhaler (Symbicort) ondansetron 4 mg disintegrating 4 mg PO TID PRN nausea and 12/08/23 01/20/24 2 Weeks Ago Rx tablet vomiting #20 tabs ~01/06/24 promethazine-DM 6.25 mg-15 mg/5 mL 5 ml PO Q6H PRN cough #150 mL 12/15/23 01/20/24 2 Weeks Ago Rx oral syrup ~01/06/24 cyanocobalamin (vitamin B-12) 1,000 mcg IM .MONTHLY 12/18/23 01/20/24 12/23/23 History 1,000 mcg/mL injection solution fenofibrate nanocrystallized 145 145 mg PO DAILY 12/18/23 01/14/24 01/19/24 History mg tablet fluoxetine 40 mg capsule 40 mg PO DAILY 12/18/23 01/14/24 01/19/24 History isosorbide mononitrate 60 mg 60 mg PO DAILY 12/18/23 01/14/24 01/20/24 05:30 History tablet,extended release 24 hr memantine 10 mg tablet 10 mg PO BID 12/18/23 01/14/24 01/19/24 History metoprolol succinate 25 mg 25 mg PO DAILY 12/18/23 01/14/24 01/20/24 05:30 History tablet,extended release 24 hr nitroglycerin 0.4 mg sublingual 0.4 mg sublingual DIRECTED PRN 12/18/23 01/20/24 1 Month Ago History tablet Chest Pain ~12/20/23 omeprazole 40 mg capsule,delayed 40 mg PO BID 12/18/23 01/14/24 01/19/24 History release pravastatin 40 mg tablet 40 mg PO DAILY 12/18/23 01/14/24 01/19/24 History ropinirole 2 mg tablet 2 mg PO BEDTIME 12/18/23 01/14/24 01/19/24 History tamsulosin 0.4 mg capsule 0.4 mg PO BID 12/18/23 01/14/24 01/19/24 History fluticasone propionate 50 2 spray intranasal DAILY #16 grams 12/29/23 01/14/24 01/19/24 Rx mcg/actuation nasal spray,suspension (Flonase Allergy Relief) montelukast 10 mg tablet 10 mg PO DAILY #90 tabs 12/29/23 01/14/24 01/19/24 Rx casanthranol-docusate sodium 30 1 cap PO DAILY PRN Constipation 01/14/24 01/14/24 01/18/24 History mg-100 mg capsule ergocalciferol (vitamin D2) 1,250 1,250 mcg PO .WKLY 01/14/24 01/14/24 01/12/24 History mcg (50,000 unit) capsule levothyroxine 25 mcg tablet 25 mcg PO DAILY 01/14/24 01/14/24 01/20/24 05:30 History oxycodone 15 mg tablet 15 mg PO TID PRN Pain 01/14/24 01/14/24 01/19/24 History Allergies Allergy/AdvReac Type Severity Reaction Status Date / Time tramadol AdvReac ADR-Headach Verified 12/18/23 14:55 e Current Medications Generic Name Dose Route Start Last Admin Trade Name Freq PRN Reason Stop Dose Admin Sodium Chloride 1,000 mls @ 30 mls/hr 01/20/24 07:15 01/20/24 07:51 Sodium Chloride 0.9% IV 01/21/24 07:14 30 mls/hr .Q24H SETH Administration PFSH Anesthesia Medical History Polyuria Status post extracorporeal shock wave therapy BPH loc w urin obs/LUTS Hypertension Dyspnea on exertion History of kidney stones Renal calculus, left Benign essential HTN Diarrhea Chest pain Vitamin B12 deficiency (dietary) anemia Right shoulder pain Biceps muscle strain Diverticulitis Vitamin B12 deficiency Diverticulosis of colon History of kidney stones At risk for falls HNP (herniated nucleus pulposus), cervical Restless legs syndrome with nocturnal myoclonus Sleep apnea Anxiety and depression Essential hypertension with goal blood pressure less than 130/80 Memory impairment of gradual onset Mixed hyperlipidemia Urinary retention Type 2 diabetes mellitus without complication, with long-term current use of insulin Encounter for long-term use of opiate analgesic Spondylosis without myelopathy or radiculopathy, lumbar region Cervical spondylosis without myelopathy Atherosclerosis of [place] coronary artery of [place] heart with angina pectoris Cervical spine pain Chronic pain Facet syndrome, lumbar Lumbosacral spondylosis without myelopathy Osteoarthritis of right knee Chronic pain of right knee Bilateral shoulder pain Tobacco use disorder Degenerative disc disease, cervical DDD (degenerative disc disease), lumbar Encounter for long-term use of opiate analgesic Surgical History H/O neck surgery H/O repair of rotator cuff LEFT History of tooth extraction Hx of lithotripsy right mid urethral stone 07/26/2013 S/P ureteral stent placement 2013 H/O local excision of skin lesion Excision of skin cancer left side of face S/P left rotator cuff repair S/P spinal surgery CERVICAL SPINE Family History Mother , at age 70 CAD (coronary artery disease) Cancer Lung disease Brother CAD (coronary artery disease), Onset Age: 40 Lung disease Family/Other Cancer Diabetes Hypertension Stroke Chronic kidney disease (CKD) Dementia Grandmother Cancer Stroke Grandfather Cancer Sister Diabetes Lung disease Brother Lung disease Sister Lung disease Mother CAD (coronary artery disease) Father No problems noted. Denies family history of Clotting disorder Suicide Anesthesia complication Bleeding disorder Social History Smoking and tobacco/nicotine status: never used tobacco/nicotine Quit status (tobacco/nicotine): has quit using Year quit tobacco: 1975 Former quit date comment: 3 ppd X 8 years Second hand smoke exposure: No Alcohol intake: current Alcohol intake frequency: holidays/special occasions only Substance/Drug Use: never Lives independently: Yes Household members: children Marital status: / Current occupational status: retired Current gender identity: Male Special wei needs: No Agree to transfusion: Yes Data Anesthesia Cardiac Studies: Echocardiogram 06/05/22 Sestamibi Stress Test (Cardiology) 06/06/22
[2024-01-20 08:44] VITALS: BP 106/68; PULSE 55; RESP 16; TEMP 36.2; O2SAT 92
[2024-01-20 08:54] VITALS: BP 108/72; PULSE 64; RESP 16; O2SAT 94
[2024-01-20 09:18] LABS: Glucose Point of Care 88 mg/dL (70-110)
--- NOTE | 2024-01-20 09:20 | ANE.PACU2 ---
Inpatient post-anesthesia follow up: Airway intact: Yes Vital signs: Temperature 97.2 F Pulse Rate 64 Respiratory Rate 16 Blood Pressure 108/72 Pulse Oximetry 94 Oxygen Delivery Me thod Room Air Oxygen Flow Rate Fraction of Inspir ed Oxygen Hydration adequate: Yes Nausea and vomiting: No Pain level: 1 Mental status: Baseline
== END 2024-01-20 09:20 | disposition home or self-care (01) ==
PROVIDERS: PCP Nurse Practitioner Family; Visit Provider Surgery
PROC: 0DJD8ZZ Inspection of Lower Intestinal Tract, Via Natural or Artificial Opening Endoscopic (ICD-10-PCS; CPT 45378; principal; 2024-01-20 08:20)
DX: Z12.11 Encounter for screening for malignant neoplasm of colon (principal); D12.4 Benign neoplasm of descending colon; D12.8 Benign neoplasm of rectum; K57.30 Diverticulosis of large intestine without perforation or abscess without bleeding; N40.1 Benign prostatic hyperplasia with lower urinary tract symptoms; N13.8 Other obstructive and reflux uropathy; I10 Essential (primary) hypertension; G47.30 Sleep apnea, unspecified; E78.2 Mixed hyperlipidemia; E11.9 Type 2 diabetes mellitus without complications; J44.9 Chronic obstructive pulmonary disease, unspecified; E03.9 Hypothyroidism, unspecified; Z79.891 Long term (current) use of opiate analgesic; G47.33 Obstructive sleep apnea (adult) (pediatric)
CPT/HCPCS: 36416; 45380; 45385; 82962; 88305; J2704; J3490; J7030

== ENCOUNTER → 2024-06-11 10:03 | Outpatient (BNVA) | payer MEDICARE, SELFPAY | PROVIDERS: Family Provider Nurse Practitioner Family; PCP Nurse Practitioner Family; Visit Provider Nurse Practitioner Family | DX: I10 Essential (primary) hypertension (principal); E11.9 Type 2 diabetes mellitus without complications; Z79.4 Long term (current) use of insulin; Z68.38 Body mass index [BMI] 38.0-38.9, adult; E66.09 Other obesity due to excess calories; Z79.891 Long term (current) use of opiate analgesic | CPT/HCPCS: 80053; 80061; 82306; 82607; 83036; 84443; 85025 ==

== ENCOUNTER → 2024-06-22 09:00 | Outpatient (BNVA) | payer MEDICARE, SELFPAY | PROVIDERS: Family Provider Nurse Practitioner Family; PCP Nurse Practitioner Family; Visit Provider Nurse Practitioner Family | DX: N18.9 Chronic kidney disease, unspecified (principal) | CPT/HCPCS: 80048 ==

== ENCOUNTER → 2024-07-07 13:16 | Outpatient (BNVA) | payer MEDICARE, SELFPAY | PROVIDERS: Family Provider Nurse Practitioner Family; PCP Nurse Practitioner Family; Visit Provider Nurse Practitioner Family | DX: R60.0 Localized edema (principal) | CPT/HCPCS: 80048 ==

== ENCOUNTER → 2024-07-20 12:09 | Outpatient (BNVA) | payer MEDICARE, SELFPAY | PROVIDERS: Family Provider Nurse Practitioner Family; PCP Nurse Practitioner Family; Visit Provider Nurse Practitioner Family | DX: N18.9 Chronic kidney disease, unspecified (principal) | CPT/HCPCS: 80048 ==

== ENCOUNTER → 2024-09-07 12:04 | Outpatient (BNVA) | payer MEDICARE, SELFPAY | PROVIDERS: Family Provider Nurse Practitioner Family; PCP Nurse Practitioner Family; Visit Provider Nurse Practitioner Family | DX: K57.92 Diverticulitis of intestine, part unspecified, without perforation or abscess without bleeding (principal) | CPT/HCPCS: 80053; 85025 ==

== ENCOUNTER → 2024-10-06 14:33 | Outpatient (BNVA) | payer MEDICARE, SELFPAY | PROVIDERS: Family Provider Nurse Practitioner Family; PCP Nurse Practitioner Family; Visit Provider Nurse Practitioner Family | DX: L82.1 Other seborrheic keratosis (principal); L91.8 Other hypertrophic disorders of the skin; D22.5 Melanocytic nevi of trunk; L57.8 Other skin changes due to chronic exposure to nonionizing radiation; L57.0 Actinic keratosis | CPT/HCPCS: 17000; 99203 ==

== ENCOUNTER → 2024-10-22 10:44 | Outpatient (BNVA) | payer MEDICARE, SELFPAY | PROVIDERS: Family Provider Nurse Practitioner Family; PCP Nurse Practitioner Family; Visit Provider Nurse Practitioner Family | DX: K57.92 Diverticulitis of intestine, part unspecified, without perforation or abscess without bleeding (principal) | CPT/HCPCS: 80053; 85025 ==

== ENCOUNTER 2024-10-28 09:52 | Outpatient (CLI) | payer MEDICARE, SELFPAY ==
--- NOTE | 2024-10-28 10:00 | CT_ITS ---
WS: [id number] CT ABDOMEN AND PELVIS WITH CONTRAST HISTORY: K57.92 - Diverticulitis of intestine, part unspecified, w... TECHNIQUE: Imaging performed of the abdomen and pelvis with IV contrast. Single phase imaging of the abdomen. Coronal and sagittal reformats are submitted. All CT scans at [facility] use at least one of these dose optimization techniques: automated exposure control; mA and/or kV adjustment per patient size (includes targeted exams where dose is matched to clinical indication); or iterative reconstruction. IV CONTRAST: Omnipaque 350; 100 mL IV. Oral contrast: Yes. DLP: 806.77 mGy.cm COMPARISON: 10/28/2023 Lower thorax: Lung bases are clear. Heart is normal size. Small hiatal hernia. Liver/biliary system: Normal size with no intrahepatic dilatation. Gallbladder: Normal. No gallstones or wall thickening. No pericholecystic fluid. Pancreas: Normal size pancreas and pancreatic duct. No adjacent inflammation. Spleen: Normal size spleen. No mass or infarct. Adrenal glands: Normal. Right kidney: Simple cyst upper pole measures 3.9 x 3.9 cm. Mild cortical thinning with no obstruction. Left kidney: No obstruction. No mass. Aorta: Mild atherosclerosis with no aneurysm. Mild stenosis involving the celiac axis. Celiac axis variant anatomy. Lymphadenopathy: None. Free fluid: None. GI tract: Stomach is nondistended. No small bowel obstruction. Normal appendix. Moderate diverticular disease in the descending and sigmoid colon. No diverticulitis identified. There is mild diffuse wall thickening from chronic diverticular disease. Abdominal wall: Unremarkable abdominal wall. No hernia. Pelvis: No free fluid or adenopathy within the pelvis. Nondistended urinary bladder. Bones: Bilateral femoral head osteonecrosis. CT/CT abdomen pelvis w con* [id number] IMPRESSION: 1. Diffuse mild constipation. 2. 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 No evidence for acute diverticulitis by CT. There is no ab scess or free air. 3. Simple cyst RIGHT kidney. 4. No ascites or adenopathy.
[2024-10-28] MEDS: iohexol 350 mg/mL 500 mL Btl (per mL) PO (10:54)
[2024-10-28] MEDS: iohexol 350 mg/mL 500 mL Btl (per mL) IV (11:23)
== END 2024-10-28 09:53 | disposition home or self-care (01) ==
LOC: RAD 09:54
PROVIDERS: Family Provider Nurse Practitioner Family; PCP Nurse Practitioner Family; Visit Provider Nurse Practitioner Family
DX: K57.92 Diverticulitis of intestine, part unspecified, without perforation or abscess without bleeding (principal); K44.9 Diaphragmatic hernia without obstruction or gangrene; K57.30 Diverticulosis of large intestine without perforation or abscess without bleeding; K59.00 Constipation, unspecified; N28.1 Cyst of kidney, acquired
CPT/HCPCS: 74177

== ENCOUNTER 2025-01-03 11:21 | Outpatient (RCR) | payer MEDICARE, SELFPAY | END 2025-01-07 23:59 | disposition home or self-care (01) | LOC: TPT 11:21 | DX: M47.817 Spondylosis without myelopathy or radiculopathy, lumbosacral region (principal) | CPT/HCPCS: 97161 ==

== ENCOUNTER → 2025-01-24 11:43 | Outpatient (BNVA) | payer MEDICARE, SELFPAY | PROVIDERS: PCP Nurse Practitioner Family; Visit Provider Nurse Practitioner Family | DX: M79.602 Pain in left arm (principal); M79.89 Other specified soft tissue disorders; W19.XXXA Unspecified fall, initial encounter | CPT/HCPCS: 73090 ==

== ENCOUNTER 2025-01-27 16:33 | Outpatient (RCR) | payer MEDICARE, SELFPAY | END 2025-02-06 23:59 | disposition home or self-care (01) | LOC: TPT 16:33 | PROVIDERS: PCP Nurse Practitioner Family; Visit Provider Student in an Organized Health Care Education/Training Program | DX: M47.817 Spondylosis without myelopathy or radiculopathy, lumbosacral region (principal) | CPT/HCPCS: 97110 ==

== ENCOUNTER → 2025-02-08 15:07 | Outpatient (BNVA) | payer MEDICARE, SELFPAY | PROVIDERS: PCP Nurse Practitioner Family; Visit Provider Nurse Practitioner Family | DX: E11.9 Type 2 diabetes mellitus without complications (principal); Z79.4 Long term (current) use of insulin; Z79.891 Long term (current) use of opiate analgesic; E66.09 Other obesity due to excess calories; Z68.38 Body mass index [BMI] 38.0-38.9, adult | CPT/HCPCS: 80053; 80061; 82306; 82607; 83036; 84443; 85025 ==

== ENCOUNTER 2025-02-09 12:58 | Outpatient (RCR) | payer MEDICARE, SELFPAY | END 2025-03-09 23:59 | disposition home or self-care (01) | LOC: TPT 12:58 | PROVIDERS: PCP Nurse Practitioner Family; Visit Provider Student in an Organized Health Care Education/Training Program | DX: M47.817 Spondylosis without myelopathy or radiculopathy, lumbosacral region (principal) | CPT/HCPCS: 97110 ==